=== PATIENT | male | born 1980 | race Caucasian/White ===

== ENCOUNTER 2019-03-20 07:15 | Emergency (ER) | payer OTHER ==
--- NOTE | 2019-03-20 07:46 | PDOC ---
History of Present Illness - General Stated Complaint: SEIZURE Time Seen by Provider: 03/20/19 07:45 - History of Present Illness Initial Comments: Hx limited 2/2 nonverbal Mr. Sheehan is a 39 y/o male with PMH of Down syndrome, developmental delay, generalized convulsive epilepsy, hypotonic diplegia, presenting today with possible seizure like activity and change in alertness. RN called EMS because she noticed seizure like activity and shaking of the extremities and was unaware he had hx of seizure disorder. children's zoo caretaker also noticed that pt was less alert and more drowsy than usual. Per mom, patient has 6-8 seizures per month. They have not increased his meds or given him more after a seizure. Neuro: Dr. Amada Wise, [facility] Past History - Past Medical History Allergies/Adverse Reactions: Allergies Allergy/AdvReac Type Severity Reaction Status Date / Time cefadroxil [From Duricef] Allergy Verified 03/20/19 08:02 cefdinir [From Omnicef] Allergy Verified 03/20/19 08:02 ceftriaxone [From Rocephin] Allergy Verified 03/20/19 08:02 Cephalosporins Allergy Verified 03/20/19 08:02 Penicillins Allergy Verified 03/20/19 08:02 Sulfa (Sulfonamide Allergy Verified 03/20/19 08:02 Antibiotics) Home Medications: Ambulatory Orders levoFLOXacin [Levaquin -] 750 mg PO DAILY #5 tablet MDD 8 03/20/19 Review of Systems - Review of Systems Able to Perform ROS?: No (nonverbal) *Physical Exam - Physical Exam Comments: GENERAL: Asleep, arousable, in no acute distress_ HEAD: No signs of trauma, normocephalic, atraumatic _ EYES: PERRLA, EOMI, sclera anicteric, conjunctiva clear_ ENT: nares patent, oropharynx clear without exudates. Moist mucosa. NECK: Normal ROM, supple, no lymphadenopathy, JVD, or masses_ LUNGS: No distress, speaks in full sentences, clear to auscultation bilaterally _ HEART: Regular rate and rhythm, normal S1 and S2, no murmurs appreciated, peripheral pulses normal and equal bilaterally._ ABDOMEN: G-tube in place. Mild surrounding erythema. Soft, nontender. No guarding, no rebound. No masses. : Suprapubic tube in place. EXTREMITIES: Contracted. NEUROLOGICAL: Unable to assess. SKIN: Warm, Dry, normal turgor, no rashes or lesions noted_ ED Treatment Course - LABORATORY CBC & Chemistry Diagram: 03/20/19 07:50 03/20/19 07:50 - ADDITIONAL ORDERS Additional order review: Laboratory Results 03/20/19 07:21 POC Glucometer 78 03/20/19 07:21 POC Glucometer 78 Medical Decision Making - Medical Decision Making 03/20/19 0745 39M with hx of seizure disorder, Down syndrome, developmental delay, presenting with seizure this morning. DDx includes seizure vs infection. -CBC, CMP -EKG, CXR 03/20/19 08:53 Labs reviewed and wnl. 03/20/19 08:55 EKG shows NSR, 69 bpm, no axis deviation, no ST elevation/depression, QTc 407. 03/20/19 10:00 [address] calls [address] to Dr. Wise, patient's neurologist at [place], as well as [facility] cooler operator. Multiple messages left. 03/20/19 10:41 Pt reassessed. At baseline. Plan to d/c home, f/u PCP. 03/20/19 1130 D/w Dr. Wise's team who states that patient can f/u with PCP as soon as possible to reevaluate seizure meds. 03/20/19 1300 Per discussion with mom and facility health care staff, will obtain UA/UC and start on levaquin 750 mg GT for 1 week. Discharge - Discharge Information Problems reviewed: Yes Clinical Impression/Diagnosis: Seizure-like activity Condition: Stable Disposition: HOME - Admission No - Additional Discharge Information Prescriptions: levoFLOXacin [Levaquin -] 750 mg PO DAILY #5 tablet MDD 8 - Follow up/Referral - Patient Discharge Instructions Patient Printed Discharge Instructions: DI for Seizure Disorder -- Adult Additional Instructions: Please continue taking your seizure medications as prescribed. Please take Levaquin daily for 5 days. Please make a follow up appointment with your neurologist Dr. Wise. If you experience any new, worsening, or concerning symptoms, including changes in alertness, loss of consciousness, fever, prolonged seizure activity, or any other concerns, please return to the emergency department. - Post Discharge Activity
[2019-03-20] MEDS ORDERED: OXcarbazepine 300 MG/5 ML 250 ML BULK BOTTLE PO ONE ×2 (07:51→07:53)
[2019-03-20] MEDS ORDERED: levETIRAcetam 500 MG/5 ML INJECTION VIAL IVPB ONE ×2 (07:53→08:07)
[2019-03-20 08:00] VITALS: BMI 18.8
[2019-03-20 08:12] LABS: BASO % 1.2 % (0-2.0); EOS % 4.2 % (0-4.5); HEMATOCRIT 39.1 % (35.4-49); HEMOGLOBIN 13.4 GM/dL (11.7-16.9); LYMPH % 27.8 % (8-40); MCH 35.4 pg (25.7-33.7); MCHC 34.3 g/dl (32.0-35.9); MEAN CELL VOLUME 103.2 fl (80-96); MEAN PLT VOLUME 8.5 fl (7.5-11.1); MONO % 10.3 % (3.8-10.2); NEUT % 56.5 % (42.8-82.8); PLATELET COUNT 263 K/MM3 (134-434); RBC 3.79 M/mm3 (4.00-5.60); RDW 13.7 % (11.9-15.9)
[2019-03-20 08:40] LABS: ALBUMIN 3.4 g/dl (3.4-5.0); BILIRUBIN,TOTAL 0.3 mg/dL (0.2-1); BLOOD UREA NITROGEN 18.2 mg/dL (7-18); CALCIUM 8.7 mg/dL (8.5-10.1); CREATININE 0.7 mg/dL (0.55-1.3); MAGNESIUM 2.1 mg/dL (1.8-2.4); POTASSIUM 4.9 mmol/L (3.5-5.1); TOT PROT 7.3 g/dl (6.4-8.2)
--- NOTE | 2019-03-20 09:06 | PDOC ---
Attending Attestation - Resident Resident Name: Juliano Doyle - ED Attending Attestation I have performed the following: I have examined & evaluated the patient, The case was reviewed & discussed with the resident, I agree w/resident's findings & plan - HPI HPI: 03/20/19 09:06 Mr. Sheehan is a 39 y/o male with PMH of Down syndrome, developmental delay, generalized convulsive epilepsy, hypotonic diplegia, presenting today with possible seizure like activity and change in alertness at approx 630AM.. Hx limited 2/2 nonverbal RN called EMS because she noticed seizure like activity and shaking of the extremities and was unaware he had hx of seizure disorder. unemployment benefits claims taker also noticed that pt was less alert and more drowsy than usual. Per mom, patient has 6-8 seizures per month. They have not increased his meds or given him more after a seizure. Neuro: Dr. Amada Wise, [facility] - Physicial Exam PE: 03/20/19 09:06 Agree with the resident's HPI and PE as documented in the electronic medical record. NAD, sleeping and snoring, nonverbal, EOMI, PERRL, nl conjunctiva, anicteric; bilateral T.M clear. neck supple. lungs clear, RRR, abdomen soft nontender, PEG tube in place, flushing. Leg bag for suprapubic catheter in place. no skin discoloration or changes or erythema/discharge around sites. no rebound, guarding. Back nontender. CONDON x4, contracted extremities. No peripheral edema. normal color for ethnicity, WWP. 03/20/19 09:52 03/20/19 10:42 - Medical Decision Making 03/20/19 09:07 Vital Signs Temp Pulse Resp BP Pulse Ox 98.7 F 78 14 101/65 100 03/20/19 07:40 03/20/19 07:40 03/20/19 07:40 03/20/19 07:40 03/20/19 07:40 Differential diagnosis includes seizure, infection, left light abnormalities, arrhythmia, pneumonia. Patient may be a chronic colonizer with a suprapubic catheter in place, defer testing at this time given he has no systemic features , fevers or signs and symptoms of urinary tract infection. Per mother at the bedside, recently transferred to [facility][1] and has been compliant with his seizure medications including Keppra and Trileptal which has been maintained for many years. His seizure today was typical of his previous ones, with general tonic-clonic typically lasting 30 seconds. He is currently back to baseline, sleeping. Laboratory results are normal, EKG is sinus rhythm without significant derangements, chest x-ray is also clear, scoliosis is present but no evidence of pneumonia or edema or infiltrate. Will call out to his neurologist Dr. Amada Wise for update on clinical visit and recommendations - left message, no call back at time of discharge, but mother comfortable with plan and followup.. Will discharge back to [facility][1] spoke with the aid at bedside as well as his mother who is agreeable to the impression and plan 03/20/19 09:53 03/20/19 10:42 03/20/19 10:43 Heart Score/ECG Review #1 ECG reviewed & interpreted by me at: 07:50 General ECG Interpretation: Sinus Rhythm, Normal Rate, Normal Intervals Compared to previous ECG there are: Previous ECG unavail
[2019-03-20 11:51] VITALS: BP 142/72; PULSE 65; TEMP 98.2
[2019-03-20] MEDS ORDERED: levoFLOXacin 750 MG TABLET GT SCH (13:26)
--- NOTE | 2019-03-20 14:23 | EKG ---
Test Reason : Blood Pressure : / mmHG Vent. Rate : 069 BPM Atrial Rate : 069 BPM P-R Int : 138 ms QRS Dur : 078 ms QT Int : 380 ms P-R-T Axes : 017 086 057 degrees QTc Int : 407 ms NORMAL SINUS RHYTHM NO PREVIOUS ECGS AVAILABLE Confirmed by BLAYNE DELAROSA MD ([id number]) on 03/20/2019 2:22:34 PM Referred By: Confirmed By:BLAYNE DELAROSA MD
[2019-03-20 14:37] LABS: EPI CELLS 1.3 /HPF (0-5/HPF); HYALINE CASTS 14 /lpf (0-8); PH,URINE 8.5 (5.0-8.0); URINE APPEARANCE CLOUDY; URINE BACTERIA 653.4 /hpf (NEGATIVE); URINE BILIRUBIN NEGATIVE (NEGATIVE); URINE COLOR YELLOW; URINE GLUCOSE (UA) NEGATIVE (NEGATIVE); URINE KETONE NEGATIVE (NEGATIVE); URINE LEUK ESTERASE 3+ (NEGATIVE); URINE NITRITE POSITIVE (NEGATIVE); URINE PROTEIN TRACE (NEGATIVE); URINE RBC 4 /hpf (0-4); URINE UROBILINOGEN 0.2 mg/dL (0.2-1.0); URINE WBC 99 /hpf (0-5)
== END 2019-03-20 15:10 | disposition home or self-care (01) ==
LOC: JER 07:15
DX: G40.401 Other generalized epilepsy and epileptic syndromes, not intractable, with status epilepticus (principal); G83.0 Diplegia of upper limbs; Q90.9 Down syndrome, unspecified; Z88.8 Allergy status to other drugs, medicaments and biological substances; Z88.0 Allergy status to penicillin
CPT/HCPCS: 36415; 71045-TC-FY; 80053; 81003; 82962; 83735; 85025; 87086; 87186; 93005; 93010; 99283-25

== ENCOUNTER 2020-05-29 09:48 | Emergency (ER) | payer OTHER ==
[2020-05-29 10:07] VITALS: BP 123/75; PULSE 97; TEMP 97.5; BMI 21.4
== END 2020-05-29 11:22 | disposition home or self-care (01) ==
LOC: JERFT 09:48
DX: S90.812A Abrasion, left foot, initial encounter (principal)
CPT/HCPCS: 73630-TC-LT; 99284-25

== ENCOUNTER 2023-01-15 02:29 | Inpatient (IN) | payer OTHER ==
[2023-01-15] MEDS ORDERED: ACETAMINOPHEN 1000 MG/100 ML BAG IVPB ONE (02:52)
[2023-01-15] MEDS ORDERED: VANCOMYCIN 1,000 MG in DEXTROSE 5%-WATER - 250 ML IVPB ONE (02:54)
[2023-01-15] MEDS ORDERED: MEROPENEM 1 GM in DEXTROSE 5%-WATER 100 ML IVPB ONE (02:56)
[2023-01-15 02:59] VITALS: BMI 16.5
[2023-01-15] MEDS ORDERED: MEROPENEM 1 GM VIAL (RESTRICTED TO ID) IVPB ONE ×2 (03:21→09:03)
[2023-01-15] MEDS ORDERED: ACETAMINOPHEN INJECTION 100 ML IVPB ONE ×2 (03:21→09:04)
[2023-01-15 03:35] LABS: BASO % 1.5 % (0-2.0); EOS % 0.1 % (0-4.5); HEMATOCRIT 41.3 % (35.4-49); LYMPH % 20.2 % (8-40); MCH 34.4 pg (25.7-33.7); MCHC 33.8 g/dl (32.0-35.9); MEAN CELL VOLUME 101.8 fl (80-96); MEAN PLT VOLUME 7.9 fl (7.5-11.1); NEUT % 68.2 % (42.8-82.8); PLATELET COUNT 320 10^3/uL (134-434); RBC 4.06 M/mm3 (4.00-5.60); RDW 13.5 % (11.9-15.9); WHITE BLOOD COUNT 7.2 K/mm3 (4.0-10.0)
[2023-01-15 03:37] LABS: POTASSIUM 4.1 mmol/L (3.5-5.1)
[2023-01-15 03:39] LABS: CALCIUM 9.7 mg/dL (8.5-10.1)
[2023-01-15 03:40] LABS: ALBUMIN 3.9 g/dl (3.4-5.0); BLOOD UREA NITROGEN 19.7 mg/dL (7-18)
[2023-01-15 03:44] LABS: BILIRUBIN,TOTAL 0.2 mg/dL (0.2-1); TOT PROT 8.1 g/dl (6.4-8.2)
[2023-01-15 04:11] LABS: LACTIC ACID 2.1 mmol/L (0.4-2.0)
[2023-01-15] MEDS ORDERED: VANCOMYCIN 1 GRAM (PRE-DOCKED) 1,000 MG/250 ML BAG IVPB ONE (04:11)
[2023-01-15] MEDS ORDERED: SODIUM CHLORIDE 0.9% 1000 ML INFUS.BAG IV ONE (04:47)
[2023-01-15 06:35] LABS: EPI CELLS 10 /uL (0-25.1); HYALINE CASTS 54 /uL (0-3.1); URINE APPEARANCE TURBID; URINE BACTERIA >9,000 /uL (0-1359); URINE BILIRUBIN NEGATIVE (NEGATIVE); URINE COLOR YELLOW; URINE GLUCOSE (UA) NEGATIVE (NEGATIVE); URINE KETONE NEGATIVE (NEGATIVE); URINE LEUK ESTERASE 2+ (NEGATIVE); URINE NITRITE POSITIVE (NEGATIVE); URINE PROTEIN 2+ (NEGATIVE); URINE RBC 16 /uL (0-23.9); URINE UROBILINOGEN 0.2 mg/dL (0.2-1.0); URINE WBC 372 /uL (0-25.8)
[2023-01-15 08:49] LABS: YEAST NEGATIVE (NEGATIVE)
[2023-01-15] MEDS: SODIUM CHLORIDE 0.45% 1,000 ML IV SCH (08:57)
[2023-01-15] MEDS ORDERED: MEROPENEM 1 GM in DEXTROSE 5%-WATER 100 ML IVPB SCH ×2 (09:00→11:00)
[2023-01-15] MEDS ORDERED: VANCOMYCIN 750 MG in DEXTROSE 5%-WATER - 150 ML IVPB SCH (09:00)
[2023-01-15] MEDS ORDERED: ENOXAPARIN NA (PORCINE) 40 MG/0.4 ML DISP.SYRIN SQ ONE (09:04)
[2023-01-15] MEDS: ENOXAPARIN NA (PORCINE) 40 MG/0.4 ML DISP.SYRIN SQ SCH (09:10)
[2023-01-15] MEDS ORDERED: lamoTRIgine 100 MG TABLET ONE (09:55)
[2023-01-15] MEDS ORDERED: lamoTRIgine 100 MG TABLET GT SCH (10:00)
[2023-01-15] MEDS ORDERED: VANCOMYCIN/WATER FOR INJ (PEG) 750 MG/150 ML BAG IVPB SCH ×2 (10:00→20:00)
[2023-01-15] MEDS: lamoTRIgine 100 MG TABLET GT SCH ×2 (17:07→22:42)
[2023-01-15] MEDS: levETIRAcetam 500 MG/5 ML ORAL SOLUTION (UNIT-DOSE CUPS) GT SCH ×2 (17:26→22:42)
[2023-01-15] MEDS: MEROPENEM 1 GM in DEXTROSE 5%-WATER 100 ML IVPB SCH (18:21)
[2023-01-15] MEDS: PATIENT'S OWN MEDICATION (NON-FORMULARY) (Tizanidine Hcl [Tizanidine Hcl] 4 MG Tablet) GT SCH (18:26)
[2023-01-15] MEDS: BACLOFEN 10 MG TABLET (FP) GT SCH ×2 (19:55→23:31)
[2023-01-15] MEDS: OXcarbazepine 300 MG TABLET (UD) PO SCH ×2 (19:55→22:43)
[2023-01-15] MEDS: ACETAMINOPHEN 1000 MG/100 ML BAG IVPB PRN (23:02)
[2023-01-16] MEDS: MEROPENEM 1 GM in DEXTROSE 5%-WATER 100 ML IVPB SCH ×3 (00:59→17:34)
[2023-01-16] MEDS: levETIRAcetam 500 MG/5 ML ORAL SOLUTION (UNIT-DOSE CUPS) GT SCH ×3 (06:29→22:53)
[2023-01-16] MEDS: OXcarbazepine 300 MG TABLET (UD) PO SCH (06:30)
[2023-01-16] MEDS: BACLOFEN 10 MG TABLET (FP) GT SCH ×3 (06:32→22:55)
[2023-01-16] MEDS: PATIENT'S OWN MEDICATION (NON-FORMULARY) (Tizanidine Hcl [Tizanidine Hcl] 4 MG Tablet) GT SCH ×3 (06:34→17:34)
[2023-01-16] MEDS: ACETAMINOPHEN 1000 MG/100 ML BAG IVPB PRN (07:58)
[2023-01-16 08:30] LABS: BASO % 1.2 % (0-2.0); HEMATOCRIT 43.8 % (35.4-49); HEMOGLOBIN 14.3 GM/dL (11.7-16.9); LYMPH % 13.7 % (8-40); MCH 33.9 pg (25.7-33.7); MCHC 32.7 g/dl (32.0-35.9); MEAN CELL VOLUME 103.5 fl (80-96); MEAN PLT VOLUME 8.8 fl (7.5-11.1); MONO % 6.4 % (3.8-10.2); NEUT % 78.7 % (42.8-82.8); PLATELET COUNT 267 10^3/uL (134-434); RBC 4.23 M/mm3 (4.00-5.60); RDW 13.8 % (11.9-15.9); WHITE BLOOD COUNT 11.5 K/mm3 (4.0-10.0)
[2023-01-16 08:48] LABS: POTASSIUM 3.4 mmol/L (3.5-5.1)
[2023-01-16 08:56] LABS: ALBUMIN 3.6 g/dl (3.4-5.0); BLOOD UREA NITROGEN 16.3 mg/dL (7-18); MAGNESIUM 2.1 mg/dL (1.8-2.4)
[2023-01-16 08:59] LABS: CREATININE 0.9 mg/dL (0.55-1.3); PHOSPHOROUS 1.7 mg/dL (2.5-4.9)
[2023-01-16 09:01] LABS: BILIRUBIN,TOTAL 0.4 mg/dL (0.2-1); TOT PROT 8.1 g/dl (6.4-8.2)
[2023-01-16] MEDS ORDERED: POTASSIUM CHLORIDE ORAL LIQUID 20 MEQ/15 ML GT ONE (10:18)
[2023-01-16] MEDS: SODIUM CHLORIDE 0.45% 1,000 ML IV SCH (10:20)
[2023-01-16] MEDS: ENOXAPARIN NA (PORCINE) 40 MG/0.4 ML DISP.SYRIN SQ SCH (10:23)
[2023-01-16] MEDS: lamoTRIgine 100 MG TABLET GT SCH ×2 (10:24→22:52)
[2023-01-16] MEDS: NAPH,MB-DB/K PH,MBDB POWDER PACKET GT SCH ×2 (10:24→22:52)
[2023-01-16] MEDS: VANCOMYCIN/WATER FOR INJ (PEG) 1,000 MG/200 ML BAG IVPB SCH (12:53)
[2023-01-16] MEDS: OXcarbazepine 300 MG/5 ML UNIT DOSE CUPS PO SCH ×2 (13:01→22:53)
[2023-01-16] MEDS ORDERED: SODIUM CHLORIDE 0.45% 1,000 ML IV SCH (17:45)
[2023-01-17] MEDS: MEROPENEM 1 GM in DEXTROSE 5%-WATER 100 ML IVPB SCH ×3 (02:59→17:51)
[2023-01-17] MEDS: OXcarbazepine 300 MG/5 ML UNIT DOSE CUPS PO SCH ×3 (06:10→22:48)
[2023-01-17] MEDS: BACLOFEN 10 MG TABLET (FP) GT SCH ×3 (06:10→22:03)
[2023-01-17] MEDS: PATIENT'S OWN MEDICATION (NON-FORMULARY) (Tizanidine Hcl [Tizanidine Hcl] 4 MG Tablet) GT SCH ×3 (06:10→17:54)
[2023-01-17 07:21] LABS: BASO % 1.1 % (0-2.0); EOS % 0.2 % (0-4.5); HEMATOCRIT 42.4 % (35.4-49); HEMOGLOBIN 13.9 GM/dL (11.7-16.9); LYMPH % 15.9 % (8-40); MCH 34.3 pg (25.7-33.7); MCHC 32.8 g/dl (32.0-35.9); MEAN CELL VOLUME 104.5 fl (80-96); MEAN PLT VOLUME 8.8 fl (7.5-11.1); MONO % 8.5 % (3.8-10.2); NEUT % 74.3 % (42.8-82.8); PLATELET COUNT 254 10^3/uL (134-434); RBC 4.06 M/mm3 (4.00-5.60); RDW 13.6 % (11.9-15.9)
[2023-01-17 07:33] LABS: ALBUMIN 3.3 g/dl (3.4-5.0); MAGNESIUM 2.2 mg/dL (1.8-2.4)
[2023-01-17 07:36] LABS: CREATININE 0.8 mg/dL (0.55-1.3)
[2023-01-17 07:38] LABS: BILIRUBIN,TOTAL 0.6 mg/dL (0.2-1); TOT PROT 7.4 g/dl (6.4-8.2)
[2023-01-17] MEDS: levETIRAcetam 500 MG/5 ML ORAL SOLUTION (UNIT-DOSE CUPS) GT SCH ×3 (08:00→22:03)
[2023-01-17] MEDS: lamoTRIgine 100 MG TABLET GT SCH ×2 (10:55→22:03)
[2023-01-17] MEDS: NAPH,MB-DB/K PH,MBDB POWDER PACKET GT SCH ×2 (10:55→22:04)
[2023-01-17] MEDS: ENOXAPARIN NA (PORCINE) 40 MG/0.4 ML DISP.SYRIN SQ SCH (10:56)
[2023-01-17] MEDS: VANCOMYCIN/WATER FOR INJ (PEG) 1,000 MG/200 ML BAG IVPB SCH (12:36)
[2023-01-18] MEDS: MEROPENEM 1 GM in DEXTROSE 5%-WATER 100 ML IVPB SCH ×3 (01:19→17:27)
[2023-01-18] MEDS: OXcarbazepine 300 MG/5 ML UNIT DOSE CUPS PO SCH ×3 (05:18→22:23)
[2023-01-18] MEDS: BACLOFEN 10 MG TABLET (FP) GT SCH ×3 (05:19→22:23)
[2023-01-18] MEDS: PATIENT'S OWN MEDICATION (NON-FORMULARY) (Tizanidine Hcl [Tizanidine Hcl] 4 MG Tablet) GT SCH ×3 (05:19→17:28)
[2023-01-18] MEDS: levETIRAcetam 500 MG/5 ML ORAL SOLUTION (UNIT-DOSE CUPS) GT SCH ×3 (05:23→22:22)
[2023-01-18 07:43] LABS: BASO % 1.5 % (0-2.0); EOS % 1.6 % (0-4.5); HEMATOCRIT 40.6 % (35.4-49); HEMOGLOBIN 13.4 GM/dL (11.7-16.9); MCH 34.4 pg (25.7-33.7); MEAN CELL VOLUME 104.2 fl (80-96); MEAN PLT VOLUME 9.3 fl (7.5-11.1); MONO % 7.7 % (3.8-10.2); NEUT % 77.2 % (42.8-82.8); PLATELET COUNT 225 10^3/uL (134-434); RDW 13.4 % (11.9-15.9); WHITE BLOOD COUNT 7.8 K/mm3 (4.0-10.0)
[2023-01-18 07:53] LABS: POTASSIUM 4.4 mmol/L (3.5-5.1)
[2023-01-18 08:14] LABS: BLOOD UREA NITROGEN 15.4 mg/dL (7-18); CALCIUM 8.3 mg/dL (8.5-10.1)
[2023-01-18 08:17] LABS: CREATININE 0.7 mg/dL (0.55-1.3); MAGNESIUM 2.3 mg/dL (1.8-2.4)
[2023-01-18 08:19] LABS: BILIRUBIN,TOTAL 0.3 mg/dL (0.2-1)
[2023-01-18 08:21] LABS: TOT PROT 6.7 g/dl (6.4-8.2)
[2023-01-18] MEDS: ENOXAPARIN NA (PORCINE) 40 MG/0.4 ML DISP.SYRIN SQ SCH (10:46)
[2023-01-18] MEDS: NAPH,MB-DB/K PH,MBDB POWDER PACKET GT SCH ×2 (10:46→22:24)
[2023-01-18] MEDS: lamoTRIgine 100 MG TABLET GT SCH ×2 (10:46→22:25)
[2023-01-18] MEDS: VANCOMYCIN/WATER FOR INJ (PEG) 1,000 MG/200 ML BAG IVPB SCH (12:18)
[2023-01-19] MEDS: MEROPENEM 1 GM in DEXTROSE 5%-WATER 100 ML IVPB SCH ×3 (02:19→18:22)
[2023-01-19] MEDS: BACLOFEN 10 MG TABLET (FP) GT SCH ×3 (06:30→23:27)
[2023-01-19] MEDS: levETIRAcetam 500 MG/5 ML ORAL SOLUTION (UNIT-DOSE CUPS) GT SCH ×3 (06:30→23:28)
[2023-01-19] MEDS: PATIENT'S OWN MEDICATION (NON-FORMULARY) (Tizanidine Hcl [Tizanidine Hcl] 4 MG Tablet) GT SCH ×3 (06:30→18:22)
[2023-01-19] MEDS: OXcarbazepine 300 MG/5 ML UNIT DOSE CUPS PO SCH ×3 (06:30→23:28)
[2023-01-19 08:05] LABS: POTASSIUM 4.2 mmol/L (3.5-5.1)
[2023-01-19 08:07] LABS: CALCIUM 8.1 mg/dL (8.5-10.1)
[2023-01-19 08:08] LABS: BLOOD UREA NITROGEN 11.1 mg/dL (7-18); HEMATOCRIT 38.8 % (35.4-49); MAGNESIUM 2.3 mg/dL (1.8-2.4); MCH 34.7 pg (25.7-33.7); MCHC 33.5 g/dl (32.0-35.9); MEAN CELL VOLUME 103.6 fl (80-96); MEAN PLT VOLUME 9.1 fl (7.5-11.1); PLATELET COUNT 235 10^3/uL (134-434); RBC 3.75 M/mm3 (4.00-5.60); RDW 12.9 % (11.9-15.9); WHITE BLOOD COUNT 5.1 K/mm3 (4.0-10.0)
[2023-01-19 08:11] LABS: CREATININE 0.6 mg/dL (0.55-1.3)
[2023-01-19 08:12] LABS: BILIRUBIN,TOTAL 0.3 mg/dL (0.2-1); TOT PROT 6.7 g/dl (6.4-8.2)
[2023-01-19] MEDS: lamoTRIgine 100 MG TABLET GT SCH ×2 (10:44→23:28)
[2023-01-19] MEDS: ENOXAPARIN NA (PORCINE) 40 MG/0.4 ML DISP.SYRIN SQ SCH (10:45)
[2023-01-19] MEDS: NAPH,MB-DB/K PH,MBDB POWDER PACKET GT SCH ×2 (10:45→23:28)
[2023-01-19 11:11] LABS: ANISOCYTOSIS 1+; MACROCYTOSIS 1+
[2023-01-20] MEDS: MEROPENEM 1 GM in DEXTROSE 5%-WATER 100 ML IVPB SCH ×2 (02:52→09:45)
[2023-01-20] MEDS: OXcarbazepine 300 MG/5 ML UNIT DOSE CUPS PO SCH ×3 (05:21→22:17)
[2023-01-20] MEDS: BACLOFEN 10 MG TABLET (FP) GT SCH ×3 (05:21→22:16)
[2023-01-20] MEDS: PATIENT'S OWN MEDICATION (NON-FORMULARY) (Tizanidine Hcl [Tizanidine Hcl] 4 MG Tablet) GT SCH ×3 (05:21→17:43)
[2023-01-20] MEDS: levETIRAcetam 500 MG/5 ML ORAL SOLUTION (UNIT-DOSE CUPS) GT SCH ×3 (05:21→22:17)
[2023-01-20 07:51] LABS: BASO % 1.2 % (0-2.0); LYMPH % 30.8 % (8-40); MCH 34.3 pg (25.7-33.7); MCHC 33.5 g/dl (32.0-35.9); MEAN CELL VOLUME 102.5 fl (80-96); MEAN PLT VOLUME 8.9 fl (7.5-11.1); MONO % 14.5 % (3.8-10.2); NEUT % 49.5 % (42.8-82.8); PLATELET COUNT 244 10^3/uL (134-434); RDW 13.1 % (11.9-15.9)
[2023-01-20 08:11] LABS: POTASSIUM 4.6 mmol/L (3.5-5.1)
[2023-01-20 08:12] LABS: CALCIUM 8.6 mg/dL (8.5-10.1)
[2023-01-20 08:13] LABS: ALBUMIN 2.9 g/dl (3.4-5.0); BLOOD UREA NITROGEN 13.6 mg/dL (7-18); MAGNESIUM 2.3 mg/dL (1.8-2.4)
[2023-01-20 08:16] LABS: CREATININE 0.6 mg/dL (0.55-1.3)
[2023-01-20 08:18] LABS: BILIRUBIN,TOTAL 0.3 mg/dL (0.2-1); TOT PROT 6.9 g/dl (6.4-8.2)
[2023-01-20] MEDS: lamoTRIgine 100 MG TABLET GT SCH ×2 (09:45→22:14)
[2023-01-20] MEDS: NAPH,MB-DB/K PH,MBDB POWDER PACKET GT SCH ×2 (09:45→22:17)
[2023-01-20] MEDS: ENOXAPARIN NA (PORCINE) 40 MG/0.4 ML DISP.SYRIN SQ SCH (09:45)
[2023-01-20] MEDS: MINERAL OIL/PET HY-PHL TOPICAL OINTMENT 454 GM JAR TP SCH (12:25)
[2023-01-21] MEDS: PATIENT'S OWN MEDICATION (NON-FORMULARY) (Tizanidine Hcl [Tizanidine Hcl] 4 MG Tablet) GT SCH ×2 (05:41→11:07)
[2023-01-21] MEDS: levETIRAcetam 500 MG/5 ML ORAL SOLUTION (UNIT-DOSE CUPS) GT SCH ×2 (05:42→13:04)
[2023-01-21] MEDS: BACLOFEN 10 MG TABLET (FP) GT SCH ×2 (05:43→13:04)
[2023-01-21] MEDS: OXcarbazepine 300 MG/5 ML UNIT DOSE CUPS PO SCH ×2 (05:44→13:04)
[2023-01-21 08:47] VITALS: RESP 20
[2023-01-21] MEDS: NAPH,MB-DB/K PH,MBDB POWDER PACKET GT SCH (11:05)
[2023-01-21] MEDS: lamoTRIgine 100 MG TABLET GT SCH (11:05)
[2023-01-21] MEDS: MINERAL OIL/PET HY-PHL TOPICAL OINTMENT 454 GM JAR TP SCH (11:05)
[2023-01-21] MEDS: ENOXAPARIN NA (PORCINE) 40 MG/0.4 ML DISP.SYRIN SQ SCH (11:05)
[2023-01-21 16:33] VITALS: BP 110/59; PULSE 98; TEMP 97.3
== END 2023-01-21 16:35 | disposition home or self-care (01) | DRG 872 ==
LOC: JER 02:29 → JERBED 03:06 → J7W 12:27
PROVIDERS: ADMIT Internal Medicine; ATTEND Nurse Practitioner Family
DX: A41.9 Sepsis, unspecified organism (principal); E87.0 Hyperosmolality and hypernatremia; E87.20 Acidosis, unspecified; N39.0 Urinary tract infection, site not specified; N31.9 Neuromuscular dysfunction of bladder, unspecified; G40.409 Other generalized epilepsy and epileptic syndromes, not intractable, without status epilepticus; R62.59 Other lack of expected normal physiological development in childhood; E03.9 Hypothyroidism, unspecified; K21.9 Gastro-esophageal reflux disease without esophagitis; E86.0 Dehydration; Q90.9 Down syndrome, unspecified
CPT/HCPCS: 0241U-QW; 36415; 71045-TC-FY; 80053; 81003; 83605; 83735; 83935; 84100; 84443; 84484; 85025; 86850; 86900; 86901; 87040; 87086; 87186; 87635; 99285-25; J0475

== ENCOUNTER 2023-03-21 12:49 | Inpatient (IN) | payer OTHER ==
[2023-03-21 15:03] LABS: VENOUS BASE EXCESS 4.4 mmol/L (-2-2); VENOUS O2 SATURATION 95.7 % (70-80); VENOUS PCO2 47.9 mmHg (38-52); VENOUS PH 7.413 (7.310-7.410)
[2023-03-21 15:05] LABS: BASO % 0.6 % (0-2.0); HEMATOCRIT 38.6 % (35.4-49); HEMOGLOBIN 12.6 GM/dL (11.7-16.9); LYMPH % 11.8 % (8-40); MCHC 32.8 g/dl (32.0-35.9); MEAN CELL VOLUME 103.7 fl (80-96); MEAN PLT VOLUME 7.6 fl (7.5-11.1); MONO % 5.7 % (3.8-10.2); NEUT % 81.9 % (42.8-82.8); PLATELET COUNT 362 10^3/uL (134-434); RBC 3.72 M/mm3 (4.00-5.60); RDW 14.3 % (11.9-15.9); WHITE BLOOD COUNT 11.3 K/mm3 (4.0-10.0)
[2023-03-21 15:37] LABS: POTASSIUM 3.7 mmol/L (3.5-5.1)
[2023-03-21 15:38] LABS: CALCIUM 10.3 mg/dL (8.5-10.1)
[2023-03-21 15:39] LABS: ALBUMIN 3.9 g/dl (3.4-5.0); BLOOD UREA NITROGEN 19.4 mg/dL (7-18)
[2023-03-21 15:43] LABS: BILIRUBIN,TOTAL 0.2 mg/dL (0.2-1); TOT PROT 7.8 g/dl (6.4-8.2)
[2023-03-21] MEDS ORDERED: ACETAMINOPHEN 1000 MG/100 ML BAG IVPB ONE (16:14)
[2023-03-21] MEDS ORDERED: SODIUM CHLORIDE 0.9% 1000 ML INFUS.BAG IV ONE (16:14)
[2023-03-21 16:33] LABS: EPI CELLS 6 /uL (0-25.1); HYALINE CASTS 1 /uL (0-3.1); PH,URINE 6.5 (5.0-8.0); URINE APPEARANCE CLOUDY; URINE BACTERIA 3065 /uL (0-1359); URINE BILIRUBIN NEGATIVE (NEGATIVE); URINE COLOR YELLOW; URINE GLUCOSE (UA) NEGATIVE (NEGATIVE); URINE KETONE NEGATIVE (NEGATIVE); URINE LEUK ESTERASE 3+ (NEGATIVE); URINE NITRITE NEGATIVE (NEGATIVE); URINE PROTEIN 2+ (NEGATIVE); URINE RBC 42 /uL (0-23.9); URINE UROBILINOGEN 0.2 mg/dL (0.2-1.0); URINE WBC 1013 /uL (0-25.8)
[2023-03-21] MEDS ORDERED: MEROPENEM 1 GM in DEXTROSE 5%-WATER 100 ML IVPB ONE (16:46)
[2023-03-21] MEDS ORDERED: VANCOMYCIN 1,000 MG in DEXTROSE 5%-WATER - 250 ML IVPB ONE (16:46)
[2023-03-21] MEDS ORDERED: MEROPENEM 1 GM VIAL (RESTRICTED TO ID) IVPB ONE (16:59)
[2023-03-21] MEDS ORDERED: ACETAMINOPHEN INJECTION 100 ML IVPB ONE (17:19)
[2023-03-21] MEDS ORDERED: VANCOMYCIN 1 GRAM (PRE-DOCKED) 1,000 MG/250 ML BAG IVPB ONE (17:20)
[2023-03-21] MEDS: SODIUM CHLORIDE 1,000 ML IV SCH (18:07)
[2023-03-21] MEDS ORDERED: ALBUTEROL SO4 0.083% IH SOL 2.5 MG/3 ML VIAL.NEB. NEB PRN (18:28)
[2023-03-21] MEDS ORDERED: diazePAM RECTAL GEL 5 MG KIT (PRE-CALIBRATED) RC PRN (18:28)
[2023-03-21] MEDS ORDERED: PATIENT'S OWN MEDICATION (NON-FORMULARY) (Diazepam [Valtoco] 10 MG/0.1 ML Spray) NS PRN (18:28)
[2023-03-21] MEDS ORDERED: BACLOFEN 10 MG TABLET (FP) ONE (21:14)
[2023-03-21] MEDS ORDERED: lamoTRIgine 100 MG TABLET ONE (21:14)
[2023-03-21] MEDS ORDERED: PATIENT'S OWN MEDICATION (NON-FORMULARY) (Tizanidine Hcl [Tizanidine Hcl] 4 MG Tablet) GT SCH (22:00)
[2023-03-21] MEDS ORDERED: SENNOSIDES 8.6MG TABLET (FP) PO SCH (22:00)
[2023-03-21] MEDS: LACTOBACILLUS ACIDOPHILUS 1 TABLET GT SCH (22:10)
[2023-03-21] MEDS: lamoTRIgine 100 MG TABLET GT SCH (22:10)
[2023-03-21] MEDS: SODIUM CHLORIDE 1 GM TABLET GT SCH (22:10)
[2023-03-21] MEDS: BACLOFEN 10 MG TABLET (FP) GT SCH (22:10)
[2023-03-21] MEDS: levETIRAcetam 500 MG/5 ML ORAL SOLUTION (UNIT-DOSE CUPS) GT SCH (22:10)
[2023-03-21] MEDS: SENNOSIDES 8.8 MG/5 ML BULK BOTTLE GT SCH (22:10)
[2023-03-21] MEDS: OXcarbazepine 300 MG/5 ML 250 ML BULK BOTTLE GT SCH (22:10)
[2023-03-22] MEDS ORDERED: MEROPENEM 1 GM VIAL (RESTRICTED TO ID) IVPB ONE ×3 (01:06→19:43)
[2023-03-22] MEDS: ACETAMINOPHEN 1000 MG/100 ML BAG IVPB PRN ×2 (02:08→21:38)
[2023-03-22] MEDS: MEROPENEM 1 GM in DEXTROSE 5%-WATER 100 ML IVPB SCH ×3 (02:08→19:55)
[2023-03-22] MEDS ORDERED: VANCOMYCIN/WATER FOR INJ (PEG) 1,000 MG/200 ML BAG IVPB SCH (06:00)
[2023-03-22] MEDS ORDERED: VANCOMYCIN 1,000 MG in DEXTROSE 5%-WATER - 250 ML IVPB SCH (06:00)
[2023-03-22] MEDS ORDERED: VANCOMYCIN 1 GRAM (PRE-DOCKED) 1,000 MG/250 ML BAG IVPB ONE (06:33)
[2023-03-22] MEDS: OXcarbazepine 300 MG/5 ML 250 ML BULK BOTTLE GT SCH ×2 (06:50→23:16)
[2023-03-22] MEDS: lamoTRIgine 100 MG TABLET GT SCH ×2 (06:50→23:04)
[2023-03-22] MEDS: BACLOFEN 10 MG TABLET (FP) GT SCH ×3 (06:50→23:06)
[2023-03-22 09:04] LABS: HEMATOCRIT 37.1 % (35.4-49); HEMOGLOBIN 12.9 GM/dL (11.7-16.9); MCH 35.6 pg (25.7-33.7); MCHC 34.9 g/dl (32.0-35.9); MEAN PLT VOLUME 7.9 fl (7.5-11.1); PLATELET COUNT 340 10^3/uL (134-434); RBC 3.64 M/mm3 (4.00-5.60); RDW 14.3 % (11.9-15.9); WHITE BLOOD COUNT 8.6 K/mm3 (4.0-10.0)
[2023-03-22 09:36] LABS: POTASSIUM 3.6 mmol/L (3.5-5.1)
[2023-03-22 09:41] LABS: CALCIUM 9.3 mg/dL (8.5-10.1)
[2023-03-22 09:42] LABS: ALBUMIN 3.7 g/dl (3.4-5.0); BLOOD UREA NITROGEN 15.7 mg/dL (7-18)
[2023-03-22 09:43] LABS: MAGNESIUM 1.9 mg/dL (1.8-2.4)
[2023-03-22 09:44] LABS: PHOSPHOROUS 3.1 mg/dL (2.5-4.9)
[2023-03-22 09:46] LABS: BILIRUBIN,TOTAL 0.4 mg/dL (0.2-1); TOT PROT 7.5 g/dl (6.4-8.2)
[2023-03-22] MEDS: POLYETHYLENE GLYCOL (HEALTHYLAX) 3350 17 GM PACKET GT SCH (11:50)
[2023-03-22] MEDS: LACTOBACILLUS ACIDOPHILUS 1 TABLET GT SCH (11:50)
[2023-03-22] MEDS: levETIRAcetam 500 MG/5 ML ORAL SOLUTION (UNIT-DOSE CUPS) GT SCH ×2 (11:50→23:03)
[2023-03-22] MEDS: ENOXAPARIN NA (PORCINE) 40 MG/0.4 ML DISP.SYRIN SQ SCH (11:50)
[2023-03-22] MEDS: SODIUM CHLORIDE 1 GM TABLET GT SCH ×2 (11:51→23:12)
[2023-03-22] MEDS: CHOLECALCIFEROL (VIT D3) 1,000 UNIT (25 MCG) TABLET GT SCH (11:51)
[2023-03-22] MEDS: SODIUM CHLORIDE 1,000 ML IV SCH (19:55)
[2023-03-22] MEDS: SENNOSIDES 8.8 MG/5 ML BULK BOTTLE GT SCH (23:10)
[2023-03-23] MEDS ORDERED: ACETAMINOPHEN 1000 MG/100 ML BAG IVPB ONE ×2 (00:19→05:04)
[2023-03-23] MEDS: MEROPENEM 1 GM in DEXTROSE 5%-WATER 100 ML IVPB SCH ×3 (05:02→17:26)
[2023-03-23] MEDS: lamoTRIgine 100 MG TABLET GT SCH ×2 (06:40→23:19)
[2023-03-23] MEDS: BACLOFEN 10 MG TABLET (FP) GT SCH ×3 (06:42→23:21)
[2023-03-23] MEDS: OXcarbazepine 300 MG/5 ML 250 ML BULK BOTTLE GT SCH ×2 (06:45→23:27)
[2023-03-23] MEDS ORDERED: INSULIN (NOVOLOG) ASPART 100 UNITS/ML 10ML VIAL ONE (07:36)
[2023-03-23 08:41] LABS: BASO % 1.3 % (0-2.0); HEMATOCRIT 37.5 % (35.4-49); HEMOGLOBIN 13.1 GM/dL (11.7-16.9); LYMPH % 21.9 % (8-40); MCH 35.5 pg (25.7-33.7); MCHC 34.8 g/dl (32.0-35.9); MEAN PLT VOLUME 7.9 fl (7.5-11.1); MONO % 7.2 % (3.8-10.2); NEUT % 69.6 % (42.8-82.8); PLATELET COUNT 281 10^3/uL (134-434); RBC 3.68 M/mm3 (4.00-5.60); RDW 13.8 % (11.9-15.9); WHITE BLOOD COUNT 6.7 K/mm3 (4.0-10.0)
[2023-03-23 09:02] LABS: ALBUMIN 3.5 g/dl (3.4-5.0); BLOOD UREA NITROGEN 12.4 mg/dL (7-18); CALCIUM 8.9 mg/dL (8.5-10.1)
[2023-03-23 09:05] LABS: CREATININE 0.8 mg/dL (0.55-1.3)
[2023-03-23 09:06] LABS: BILIRUBIN,TOTAL 0.4 mg/dL (0.2-1); TOT PROT 7.1 g/dl (6.4-8.2)
[2023-03-23] MEDS: SODIUM CHLORIDE 1 GM TABLET GT SCH ×2 (09:17→23:16)
[2023-03-23] MEDS: CHOLECALCIFEROL (VIT D3) 1,000 UNIT (25 MCG) TABLET GT SCH (09:18)
[2023-03-23] MEDS: POLYETHYLENE GLYCOL (HEALTHYLAX) 3350 17 GM PACKET GT SCH (09:18)
[2023-03-23] MEDS: ENOXAPARIN NA (PORCINE) 40 MG/0.4 ML DISP.SYRIN SQ SCH (09:18)
[2023-03-23] MEDS: levETIRAcetam 500 MG/5 ML ORAL SOLUTION (UNIT-DOSE CUPS) GT SCH ×2 (09:18→23:23)
[2023-03-23] MEDS: LACTOBACILLUS ACIDOPHILUS 1 TABLET GT SCH (09:18)
[2023-03-23] MEDS: POTASSIUM CHLORIDE ORAL LIQUID 20 MEQ/15 ML GT SCH ×2 (11:21→23:26)
[2023-03-23] MEDS ORDERED: LACTOBACILLUS ACIDOPHILUS 1 TABLET GT SCH (13:00)
[2023-03-23] MEDS ORDERED: ACETAMINOPHEN 650 MG/20.3 ML ORAL SOLUTION (CUPS) GT PRN ×2 (15:00→18:04)
[2023-03-23] MEDS: SODIUM CHLORIDE 0.45% 1,000 ML IV SCH (17:26)
[2023-03-23] MEDS ORDERED: ACETAMINOPHEN 1000 MG/100 ML BAG IVPB PRN (18:03)
[2023-03-23] MEDS: ACETAMINOPHEN 1000 MG/100 ML BAG IVPB PRN (19:06)
[2023-03-23] MEDS: SENNOSIDES 8.8 MG/5 ML BULK BOTTLE GT SCH (23:27)
[2023-03-24] MEDS: MEROPENEM 1 GM in DEXTROSE 5%-WATER 100 ML IVPB SCH ×3 (01:12→17:15)
[2023-03-24] MEDS: ACETAMINOPHEN 1000 MG/100 ML BAG IVPB PRN (01:40)
[2023-03-24] MEDS: BACLOFEN 10 MG TABLET (FP) GT SCH ×3 (06:51→21:54)
[2023-03-24] MEDS: lamoTRIgine 100 MG TABLET GT SCH ×2 (06:52→21:52)
[2023-03-24] MEDS: OXcarbazepine 300 MG/5 ML 250 ML BULK BOTTLE GT SCH ×2 (06:54→22:33)
[2023-03-24 08:22] LABS: BASO % 0.7 % (0-2.0); EOS % 0.1 % (0-4.5); HEMATOCRIT 40.5 % (35.4-49); HEMOGLOBIN 13.5 GM/dL (11.7-16.9); LYMPH % 28.1 % (8-40); MCH 35.2 pg (25.7-33.7); MCHC 33.2 g/dl (32.0-35.9); MONO % 11.4 % (3.8-10.2); NEUT % 59.7 % (42.8-82.8); PLATELET COUNT 281 10^3/uL (134-434); RBC 3.82 M/mm3 (4.00-5.60); RDW 14.2 % (11.9-15.9); WHITE BLOOD COUNT 7.5 K/mm3 (4.0-10.0)
[2023-03-24 08:37] LABS: POTASSIUM 3.5 mmol/L (3.5-5.1)
[2023-03-24 08:46] LABS: CALCIUM 8.6 mg/dL (8.5-10.1)
[2023-03-24 08:47] LABS: ALBUMIN 3.6 g/dl (3.4-5.0); BLOOD UREA NITROGEN 16.5 mg/dL (7-18); MAGNESIUM 2.6 mg/dL (1.8-2.4)
[2023-03-24 08:51] LABS: CREATININE 0.9 mg/dL (0.55-1.3)
[2023-03-24 08:52] LABS: BILIRUBIN,TOTAL 0.3 mg/dL (0.2-1); TOT PROT 7.4 g/dl (6.4-8.2)
[2023-03-24] MEDS: levETIRAcetam 500 MG/5 ML ORAL SOLUTION (UNIT-DOSE CUPS) GT SCH ×2 (09:40→21:56)
[2023-03-24] MEDS: POTASSIUM CHLORIDE ORAL LIQUID 20 MEQ/15 ML GT SCH (09:40)
[2023-03-24] MEDS: POLYETHYLENE GLYCOL (HEALTHYLAX) 3350 17 GM PACKET GT SCH (09:41)
[2023-03-24] MEDS: ENOXAPARIN NA (PORCINE) 40 MG/0.4 ML DISP.SYRIN SQ SCH (09:41)
[2023-03-24] MEDS: SODIUM CHLORIDE 1 GM TABLET GT SCH ×2 (09:41→21:48)
[2023-03-24] MEDS: CHOLECALCIFEROL (VIT D3) 1,000 UNIT (25 MCG) TABLET GT SCH (09:42)
[2023-03-24] MEDS: LACTOBACILLUS ACIDOPHILUS 1 TABLET GT SCH (09:42)
[2023-03-24] MEDS: SODIUM CHLORIDE 0.45% 1,000 ML IV SCH (17:18)
[2023-03-24] MEDS: SENNOSIDES 8.8 MG/5 ML BULK BOTTLE GT SCH (21:56)
[2023-03-25] MEDS: MEROPENEM 1 GM in DEXTROSE 5%-WATER 100 ML IVPB SCH ×3 (03:19→18:32)
[2023-03-25] MEDS: lamoTRIgine 100 MG TABLET GT SCH ×2 (06:59→21:53)
[2023-03-25] MEDS: BACLOFEN 10 MG TABLET (FP) GT SCH ×3 (06:59→21:53)
[2023-03-25] MEDS: OXcarbazepine 300 MG/5 ML 250 ML BULK BOTTLE GT SCH ×2 (07:00→22:12)
[2023-03-25 09:49] LABS: BASO % 1.5 % (0-2.0); EOS % 0.5 % (0-4.5); HEMOGLOBIN 12.7 GM/dL (11.7-16.9); LYMPH % 26.6 % (8-40); MCH 34.4 pg (25.7-33.7); MCHC 32.7 g/dl (32.0-35.9); MEAN CELL VOLUME 105.3 fl (80-96); MEAN PLT VOLUME 7.9 fl (7.5-11.1); MONO % 11.4 % (3.8-10.2); PLATELET COUNT 255 10^3/uL (134-434); RDW 13.9 % (11.9-15.9); WHITE BLOOD COUNT 6.6 K/mm3 (4.0-10.0)
[2023-03-25 10:09] LABS: POTASSIUM 3.7 mmol/L (3.5-5.1)
[2023-03-25 10:20] LABS: CALCIUM 8.5 mg/dL (8.5-10.1)
[2023-03-25 10:21] LABS: ALBUMIN 3.4 g/dl (3.4-5.0); MAGNESIUM 2.6 mg/dL (1.8-2.4)
[2023-03-25 10:24] LABS: CREATININE 0.8 mg/dL (0.55-1.3)
[2023-03-25 10:25] LABS: BILIRUBIN,TOTAL 0.5 mg/dL (0.2-1)
[2023-03-25 10:26] LABS: TOT PROT 6.9 g/dl (6.4-8.2)
[2023-03-25] MEDS: ENOXAPARIN NA (PORCINE) 40 MG/0.4 ML DISP.SYRIN SQ SCH (10:46)
[2023-03-25] MEDS: levETIRAcetam 500 MG/5 ML ORAL SOLUTION (UNIT-DOSE CUPS) GT SCH ×2 (10:46→21:54)
[2023-03-25] MEDS: SODIUM CHLORIDE 1 GM TABLET GT SCH ×2 (10:47→21:53)
[2023-03-25] MEDS: CHOLECALCIFEROL (VIT D3) 1,000 UNIT (25 MCG) TABLET GT SCH (10:47)
[2023-03-25] MEDS: LACTOBACILLUS ACIDOPHILUS 1 TABLET GT SCH (10:48)
[2023-03-25] MEDS: SODIUM CHLORIDE 0.45% 1,000 ML IV SCH ×2 (10:48→20:06)
[2023-03-25] MEDS ORDERED: POLYETHYLENE GLYCOL (HEALTHYLAX) 3350 17 GM PACKET GT SCH (14:00)
[2023-03-25] MEDS: SENNOSIDES 8.8 MG/5 ML SYRUP GT SCH (22:11)
[2023-03-26] MEDS: MEROPENEM 1 GM in DEXTROSE 5%-WATER 100 ML IVPB SCH ×3 (01:19→17:18)
[2023-03-26] MEDS: BACLOFEN 10 MG TABLET (FP) GT SCH ×3 (05:57→22:48)
[2023-03-26] MEDS: lamoTRIgine 100 MG TABLET GT SCH ×2 (06:01→22:49)
[2023-03-26] MEDS: OXcarbazepine 300 MG/5 ML 250 ML BULK BOTTLE GT SCH ×2 (06:02→22:53)
[2023-03-26 08:08] LABS: BASO % 0.5 % (0-2.0); EOS % 1.4 % (0-4.5); HEMOGLOBIN 12.7 GM/dL (11.7-16.9); LYMPH % 33.7 % (8-40); MCH 35.1 pg (25.7-33.7); MCHC 33.4 g/dl (32.0-35.9); MEAN PLT VOLUME 7.7 fl (7.5-11.1); MONO % 10.6 % (3.8-10.2); NEUT % 53.8 % (42.8-82.8); PLATELET COUNT 238 10^3/uL (134-434); RBC 3.62 M/mm3 (4.00-5.60); RDW 14.4 % (11.9-15.9); WHITE BLOOD COUNT 4.7 K/mm3 (4.0-10.0)
[2023-03-26 08:26] LABS: POTASSIUM 4.1 mmol/L (3.5-5.1)
[2023-03-26 08:34] LABS: BLOOD UREA NITROGEN 17.6 mg/dL (7-18); MAGNESIUM 2.9 mg/dL (1.8-2.4)
[2023-03-26 08:37] LABS: CREATININE 0.6 mg/dL (0.55-1.3)
[2023-03-26 08:39] LABS: BILIRUBIN,TOTAL 0.3 mg/dL (0.2-1); TOT PROT 6.1 g/dl (6.4-8.2)
[2023-03-26] MEDS: levETIRAcetam 500 MG/5 ML ORAL SOLUTION (UNIT-DOSE CUPS) GT SCH ×2 (09:51→22:48)
[2023-03-26] MEDS: LACTOBACILLUS ACIDOPHILUS 1 TABLET GT SCH (09:53)
[2023-03-26] MEDS: CHOLECALCIFEROL (VIT D3) 1,000 UNIT (25 MCG) TABLET GT SCH (09:53)
[2023-03-26] MEDS: SODIUM CHLORIDE 1 GM TABLET GT SCH (09:53)
[2023-03-26] MEDS: POLYETHYLENE GLYCOL (HEALTHYLAX) 3350 17 GM PACKET GT SCH (09:54)
[2023-03-26] MEDS: ENOXAPARIN NA (PORCINE) 40 MG/0.4 ML DISP.SYRIN SQ SCH (09:55)
[2023-03-26] MEDS: SODIUM CHLORIDE 0.45% 1,000 ML IV SCH (09:55)
[2023-03-26] MEDS: SENNOSIDES 8.8 MG/5 ML SYRUP GT SCH (22:50)
[2023-03-27] MEDS: MEROPENEM 1 GM in DEXTROSE 5%-WATER 100 ML IVPB SCH ×3 (02:43→17:28)
[2023-03-27] MEDS: lamoTRIgine 100 MG TABLET GT SCH ×2 (06:08→21:40)
[2023-03-27] MEDS: BACLOFEN 10 MG TABLET (FP) GT SCH ×3 (06:08→21:41)
[2023-03-27] MEDS: OXcarbazepine 300 MG/5 ML 250 ML BULK BOTTLE GT SCH ×2 (06:10→21:58)
[2023-03-27] MEDS: SODIUM CHLORIDE 0.45% 1,000 ML IV SCH (08:33)
[2023-03-27] MEDS: ENOXAPARIN NA (PORCINE) 40 MG/0.4 ML DISP.SYRIN SQ SCH (09:16)
[2023-03-27] MEDS: LACTOBACILLUS ACIDOPHILUS 1 TABLET GT SCH (09:22)
[2023-03-27] MEDS: POLYETHYLENE GLYCOL (HEALTHYLAX) 3350 17 GM PACKET GT SCH (09:23)
[2023-03-27] MEDS: CHOLECALCIFEROL (VIT D3) 1,000 UNIT (25 MCG) TABLET GT SCH (09:23)
[2023-03-27] MEDS: levETIRAcetam 500 MG/5 ML ORAL SOLUTION (UNIT-DOSE CUPS) GT SCH ×2 (09:23→21:40)
[2023-03-27 09:27] LABS: HEMATOCRIT 35.1 % (35.4-49); HEMOGLOBIN 11.9 GM/dL (11.7-16.9); LYMPH % 16.6 % (8-40); MCH 35.1 pg (25.7-33.7); MEAN CELL VOLUME 103.2 fl (80-96); MEAN PLT VOLUME 8.1 fl (7.5-11.1); MONO % 7.9 % (3.8-10.2); NEUT % 71.5 % (42.8-82.8); PLATELET COUNT 231 10^3/uL (134-434); RDW 14.6 % (11.9-15.9); WHITE BLOOD COUNT 6.6 K/mm3 (4.0-10.0)
[2023-03-27 09:47] LABS: BLOOD UREA NITROGEN 14.2 mg/dL (7-18); CALCIUM 8.2 mg/dL (8.5-10.1); MAGNESIUM 2.3 mg/dL (1.8-2.4)
[2023-03-27 09:48] LABS: ALBUMIN 3.1 g/dl (3.4-5.0)
[2023-03-27 09:52] LABS: BILIRUBIN,TOTAL 0.3 mg/dL (0.2-1); TOT PROT 6.2 g/dl (6.4-8.2)
[2023-03-27 09:54] LABS: CREATININE 0.7 mg/dL (0.55-1.3)
[2023-03-27 16:52] VITALS: BMI 17.2
[2023-03-27] MEDS: SENNOSIDES 8.8 MG/5 ML SYRUP GT SCH (22:02)
[2023-03-28] MEDS: MEROPENEM 1 GM in DEXTROSE 5%-WATER 100 ML IVPB SCH ×3 (01:44→17:27)
[2023-03-28] MEDS: BACLOFEN 10 MG TABLET (FP) GT SCH ×3 (06:31→21:13)
[2023-03-28] MEDS: lamoTRIgine 100 MG TABLET GT SCH ×2 (06:31→21:14)
[2023-03-28 09:29] LABS: BASO % 1.2 % (0-2.0); EOS % 4.1 % (0-4.5); HEMATOCRIT 35.3 % (35.4-49); HEMOGLOBIN 12.2 GM/dL (11.7-16.9); LYMPH % 34.2 % (8-40); MCHC 34.5 g/dl (32.0-35.9); MEAN CELL VOLUME 104.2 fl (80-96); MEAN PLT VOLUME 8.4 fl (7.5-11.1); MONO % 11.9 % (3.8-10.2); NEUT % 48.6 % (42.8-82.8); PLATELET COUNT 269 10^3/uL (134-434); RBC 3.39 M/mm3 (4.00-5.60); RDW 14.3 % (11.9-15.9); WHITE BLOOD COUNT 4.9 K/mm3 (4.0-10.0)
[2023-03-28] MEDS: ENOXAPARIN NA (PORCINE) 40 MG/0.4 ML DISP.SYRIN SQ SCH (09:32)
[2023-03-28] MEDS: levETIRAcetam 500 MG/5 ML ORAL SOLUTION (UNIT-DOSE CUPS) GT SCH ×2 (09:35→21:13)
[2023-03-28] MEDS: CHOLECALCIFEROL (VIT D3) 1,000 UNIT (25 MCG) TABLET GT SCH (09:35)
[2023-03-28] MEDS: LACTOBACILLUS ACIDOPHILUS 1 TABLET GT SCH (09:35)
[2023-03-28] MEDS: POLYETHYLENE GLYCOL (HEALTHYLAX) 3350 17 GM PACKET GT SCH (09:42)
[2023-03-28 09:44] LABS: POTASSIUM 4.1 mmol/L (3.5-5.1)
[2023-03-28] MEDS: OXcarbazepine 300 MG/5 ML 250 ML BULK BOTTLE GT SCH ×2 (09:46→22:07)
[2023-03-28 10:05] VITALS: RESP 18
[2023-03-28 10:07] LABS: CALCIUM 8.5 mg/dL (8.5-10.1)
[2023-03-28 10:08] LABS: BLOOD UREA NITROGEN 14.2 mg/dL (7-18); MAGNESIUM 2.4 mg/dL (1.8-2.4)
[2023-03-28 10:13] LABS: TOT PROT 6.4 g/dl (6.4-8.2)
[2023-03-28 10:14] LABS: CREATININE 0.6 mg/dL (0.55-1.3)
[2023-03-28 10:16] LABS: BILIRUBIN,TOTAL 0.5 mg/dL (0.2-1)
[2023-03-28] MEDS: SENNOSIDES 8.8 MG/5 ML SYRUP GT SCH (21:14)
[2023-03-29] MEDS: MEROPENEM 1 GM in DEXTROSE 5%-WATER 100 ML IVPB SCH ×2 (01:44→09:01)
[2023-03-29] MEDS: BACLOFEN 10 MG TABLET (FP) GT SCH (06:01)
[2023-03-29] MEDS: lamoTRIgine 100 MG TABLET GT SCH (06:01)
[2023-03-29] MEDS: OXcarbazepine 300 MG/5 ML 250 ML BULK BOTTLE GT SCH (06:03)
[2023-03-29] MEDS: levETIRAcetam 500 MG/5 ML ORAL SOLUTION (UNIT-DOSE CUPS) GT SCH (09:01)
[2023-03-29] MEDS: CHOLECALCIFEROL (VIT D3) 1,000 UNIT (25 MCG) TABLET GT SCH (09:01)
[2023-03-29] MEDS: LACTOBACILLUS ACIDOPHILUS 1 TABLET GT SCH (09:01)
[2023-03-29] MEDS: ENOXAPARIN NA (PORCINE) 40 MG/0.4 ML DISP.SYRIN SQ SCH (09:01)
[2023-03-29] MEDS: POLYETHYLENE GLYCOL (HEALTHYLAX) 3350 17 GM PACKET GT SCH (09:02)
[2023-03-29 10:20] VITALS: BP 100/68; PULSE 96; TEMP 97.5
== END 2023-03-29 11:18 | DRG 698 ==
LOC: JER 12:49 → JERBED 17:17 → J8W 03-22 20:27
PROVIDERS: ADMIT Internal Medicine; ATTEND Nurse Practitioner Family
DX: T83.510A Infection and inflammatory reaction due to cystostomy catheter, initial encounter (principal); A41.9 Sepsis, unspecified organism; R53.2 Functional quadriplegia; N39.0 Urinary tract infection, site not specified; F73 Profound intellectual disabilities; G83.0 Diplegia of upper limbs; Q90.9 Down syndrome, unspecified; Z93.1 Gastrostomy status; G40.909 Epilepsy, unspecified, not intractable, without status epilepticus; E03.9 Hypothyroidism, unspecified; K21.9 Gastro-esophageal reflux disease without esophagitis; Y83.9 Surgical procedure, unspecified as the cause of abnormal reaction of the patient, or of later complication, without mention of misadventure at the time of the procedure
CPT/HCPCS: 0241U-QW; 36415; 71045-TC-FY; 74176-TC; 80053; 81003; 82803; 83605; 83735; 84100; 85025; 85027; 86682; 87040; 87086; 87186; 87635; 93005; 93010; 99285-25; J0475

== ENCOUNTER 2023-06-16 22:18 | Inpatient (IN) | payer OTHER ==
[2023-06-16 23:08] LABS: BASO % 1.4 % (0-2.0); EOS % 1.6 % (0-4.5); HEMATOCRIT 39.4 % (35.4-49); HEMOGLOBIN 13.4 GM/dL (11.7-16.9); LYMPH % 44.7 % (8-40); MCH 35.5 pg (25.7-33.7); MCHC 33.9 g/dl (32.0-35.9); MEAN CELL VOLUME 104.6 fl (80-96); MEAN PLT VOLUME 7.6 fl (7.5-11.1); MONO % 11.1 % (3.8-10.2); NEUT % 41.2 % (42.8-82.8); PLATELET COUNT 329 10^3/uL (134-434); RBC 3.76 M/mm3 (4.00-5.60); WHITE BLOOD COUNT 4.7 K/mm3 (4.0-10.0)
[2023-06-16 23:10] LABS: VENOUS O2 SATURATION 66.2 % (70-80); VENOUS PCO2 68.8 mmHg (38-52); VENOUS PH 7.308 (7.310-7.410)
[2023-06-16 23:14] LABS: INR 1.01 (0.83-1.09); PROTHROMBIN TIME (PATIENT) 11.7 SEC (9.7-13.0)
[2023-06-16 23:16] LABS: ACTIVATED PTT 34.9 SECONDS (25.2-36.5)
[2023-06-16] MEDS ORDERED: ACETAMINOPHEN INJECTION 100 ML IVPB ONE (23:28)
[2023-06-16] MEDS: ACETAMINOPHEN 1000 MG/100 ML BAG IVPB ONE (23:35)
[2023-06-16 23:40] LABS: CALCIUM 10.9 mg/dL (8.5-10.1)
[2023-06-16 23:41] LABS: ALBUMIN 3.5 g/dl (3.4-5.0); BLOOD UREA NITROGEN 23.5 mg/dL (7-18)
[2023-06-16 23:45] LABS: BILIRUBIN,TOTAL 0.2 mg/dL (0.2-1); TOT PROT 7.9 g/dl (6.4-8.2)
[2023-06-16 23:59] LABS: EPI CELLS 15 /uL (0-25.1); HYALINE CASTS 0 /uL (0-3.1); PH,URINE 7.5 (5.0-8.0); URINE APPEARANCE CLEAR; URINE BACTERIA 272 /uL (0-1359); URINE BILIRUBIN NEGATIVE (NEGATIVE); URINE COLOR YELLOW; URINE GLUCOSE (UA) NEGATIVE (NEGATIVE); URINE KETONE NEGATIVE (NEGATIVE); URINE LEUK ESTERASE 2+ (NEGATIVE); URINE NITRITE NEGATIVE (NEGATIVE); URINE PROTEIN NEGATIVE (NEGATIVE); URINE RBC 11 /uL (0-23.9); URINE UROBILINOGEN 0.2 mg/dL (0.2-1.0); URINE WBC 63 /uL (0-25.8)
[2023-06-17] MEDS ORDERED: DEXTROSE 5%-WATER 100 ML IVPB ONE (00:44)
[2023-06-17] MEDS ORDERED: MEROPENEM 1 GM VIAL (RESTRICTED TO ID) IVPB ONE ×2 (00:44→10:00)
[2023-06-17] MEDS: MEROPENEM 1 GM in DEXTROSE 5%-WATER 100 ML IVPB ONE (00:55)
[2023-06-17] MEDS ORDERED: SIMETHICONE 40 MG/0.6 ML BOTTLE GT PRN (02:33)
[2023-06-17] MEDS ORDERED: VITAMINS A AND D TOPICAL OINTMENT 60 GM TUBE TP PRN (02:33)
[2023-06-17] MEDS ORDERED: BISACODYL 10 MG SUPP.RECT PR PRN (02:45)
[2023-06-17] MEDS ORDERED: MAG HYDROX/AL HYDROX/SIMETH 30 ML UNIT-DOSE CUP ONE (05:45)
[2023-06-17] MEDS: MAG HYDROX/AL HYDROX/SIMETH 30 ML UNIT-DOSE CUP GT SCH (05:54)
[2023-06-17 06:31] LABS: HEMATOCRIT 37.7 % (35.4-49); HEMOGLOBIN 12.5 GM/dL (11.7-16.9); MCH 35.3 pg (25.7-33.7); MCHC 33.3 g/dl (32.0-35.9); MEAN PLT VOLUME 7.7 fl (7.5-11.1); PLATELET COUNT 315 10^3/uL (134-434); RBC 3.56 M/mm3 (4.00-5.60); RDW 14.5 % (11.9-15.9); WHITE BLOOD COUNT 5.9 K/mm3 (4.0-10.0)
[2023-06-17 06:33] LABS: CALCIUM 11.6 mg/dL (8.5-10.1)
[2023-06-17 06:34] LABS: ALBUMIN 3.4 g/dl (3.4-5.0); BLOOD UREA NITROGEN 24.1 mg/dL (7-18)
[2023-06-17 06:37] LABS: PHOSPHOROUS 4.7 mg/dL (2.5-4.9)
[2023-06-17 06:38] LABS: TOT PROT 7.7 g/dl (6.4-8.2)
[2023-06-17 06:39] LABS: BILIRUBIN,TOTAL 0.2 mg/dL (0.2-1)
[2023-06-17 06:45] LABS: ADD RBC MORPHOLOGY YES
[2023-06-17] MEDS: ZINC OXIDE 20% TOPICAL OINTMENT 30 GM TUBE TP SCH (09:00)
[2023-06-17 10:23] LABS: ANISOCYTOSIS 2+; MACROCYTOSIS 2+
[2023-06-17] MEDS: lamoTRIgine 100 MG TABLET GT SCH (10:48)
[2023-06-17] MEDS: OXcarbazepine 300 MG/5 ML UNIT DOSE CUPS GT SCH (10:48)
[2023-06-17] MEDS: LORATADINE 10 MG TABLET GT SCH (10:49)
[2023-06-17] MEDS: POLYETHYLENE GLYCOL (HEALTHYLAX) 3350 17 GM PACKET PO SCH (10:49)
[2023-06-17] MEDS: levETIRAcetam 500 MG/5 ML ORAL SOLUTION (UNIT-DOSE CUPS) GT SCH (10:49)
[2023-06-17] MEDS: ENOXAPARIN NA (PORCINE) 40 MG/0.4 ML DISP.SYRIN SQ SCH (10:52)
[2023-06-17] MEDS: MEROPENEM 1 GM in DEXTROSE 5%-WATER 100 ML IVPB SCH (10:52)
[2023-06-17] MEDS: FLUTICASONE PROP 0.05% 16 GM NASAL SPRAY NS SCH (13:50)
[2023-06-17] MEDS: TUBE FEED DECLOGGING SOLUTION 12,000 UNITS GT ONE (13:50)
[2023-06-17] MEDS: VANCOMYCIN/WATER FOR INJ (PEG) 750 MG/150 ML BAG IVPB SCH (16:30)
[2023-06-17] MEDS: VANCOMYCIN 750 MG in DEXTROSE 5%-WATER - 150 ML IVPB SCH (16:30)
[2023-06-17] MEDS: lamoTRIgine 100 MG TABLET PO SCH (23:16)
[2023-06-17] MEDS: ACETAMINOPHEN 650 MG/20.3 ML ORAL SOLUTION (CUPS) GT PRN (23:20)
[2023-06-18] MEDS: OXcarbazepine 300 MG/5 ML UNIT DOSE CUPS GT SCH (01:07)
[2023-06-18 08:43] LABS: BASO % 1.7 % (0-2.0); EOS % 0.8 % (0-4.5); HEMATOCRIT 37.9 % (35.4-49); HEMOGLOBIN 12.8 GM/dL (11.7-16.9); LYMPH % 20.3 % (8-40); MCH 35.4 pg (25.7-33.7); MCHC 33.9 g/dl (32.0-35.9); MEAN CELL VOLUME 104.4 fl (80-96); MEAN PLT VOLUME 7.8 fl (7.5-11.1); MONO % 7.6 % (3.8-10.2); NEUT % 69.6 % (42.8-82.8); PLATELET COUNT 345 10^3/uL (134-434); RBC 3.63 M/mm3 (4.00-5.60); RDW 14.5 % (11.9-15.9); WHITE BLOOD COUNT 6.2 K/mm3 (4.0-10.0)
[2023-06-18 08:59] LABS: CALCIUM 11.5 mg/dL (8.5-10.1)
[2023-06-18 09:00] LABS: ALBUMIN 3.7 g/dl (3.4-5.0); BLOOD UREA NITROGEN 21.3 mg/dL (7-18); MAGNESIUM 2.7 mg/dL (1.8-2.4)
[2023-06-18 09:03] LABS: CREATININE 1.1 mg/dL (0.55-1.3)
[2023-06-18 09:05] LABS: BILIRUBIN,TOTAL 0.3 mg/dL (0.2-1); TOT PROT 8.2 g/dl (6.4-8.2)
[2023-06-18] MEDS: MEROPENEM 1 GM in DEXTROSE 5%-WATER 100 ML IVPB SCH (12:38)
[2023-06-18 13:43] VITALS: BMI 18.5
[2023-06-19 08:20] LABS: POTASSIUM 4.1 mmol/L (3.5-5.1)
[2023-06-19 08:24] LABS: ALBUMIN 3.8 g/dl (3.4-5.0); BLOOD UREA NITROGEN 22.6 mg/dL (7-18); CALCIUM 11.6 mg/dL (8.5-10.1); MAGNESIUM 2.9 mg/dL (1.8-2.4)
[2023-06-19 08:27] LABS: CREATININE 1.3 mg/dL (0.55-1.3)
[2023-06-19 08:29] LABS: BILIRUBIN,TOTAL 0.3 mg/dL (0.2-1); TOT PROT 8.5 g/dl (6.4-8.2)
[2023-06-19 08:32] LABS: BASO % 0.8 % (0-2.0); EOS % 0.1 % (0-4.5); HEMATOCRIT 40.1 % (35.4-49); HEMOGLOBIN 13.9 GM/dL (11.7-16.9); LYMPH % 12.5 % (8-40); MCH 36.2 pg (25.7-33.7); MCHC 34.7 g/dl (32.0-35.9); MEAN CELL VOLUME 104.3 fl (80-96); MEAN PLT VOLUME 8.1 fl (7.5-11.1); MONO % 7.8 % (3.8-10.2); NEUT % 78.8 % (42.8-82.8); PLATELET COUNT 360 10^3/uL (134-434); RBC 3.84 M/mm3 (4.00-5.60); RDW 14.4 % (11.9-15.9); WHITE BLOOD COUNT 10.7 K/mm3 (4.0-10.0)
[2023-06-19] MEDS: SODIUM CHLORIDE 1,000 ML IV SCH (09:55)
[2023-06-19] MEDS: MINERAL OIL/PET HY-PHL TOPICAL OINTMENT 454 GM JAR TP SCH (16:32)
[2023-06-19] MEDS: BACLOFEN 10 MG TABLET (FP) GT SCH (16:34)
[2023-06-19] MEDS ORDERED: PATIENT'S OWN MEDICATION (NON-FORMULARY) (Tizanidine Hcl [Tizanidine Hcl] 4 MG Tablet) GT SCH (22:00)
[2023-06-20 09:59] LABS: EOS % 0.4 % (0-4.5); HEMATOCRIT 38.3 % (35.4-49); HEMOGLOBIN 12.6 GM/dL (11.7-16.9); MEAN CELL VOLUME 106.1 fl (80-96); MONO % 10.7 % (3.8-10.2); NEUT % 58.9 % (42.8-82.8); PLATELET COUNT 306 10^3/uL (134-434); RBC 3.61 M/mm3 (4.00-5.60); RDW 14.3 % (11.9-15.9); WHITE BLOOD COUNT 6.5 K/mm3 (4.0-10.0)
[2023-06-20 10:14] LABS: POTASSIUM 3.9 mmol/L (3.5-5.1)
[2023-06-20 10:27] LABS: ALBUMIN 3.2 g/dl (3.4-5.0)
[2023-06-20 10:28] LABS: BILIRUBIN,TOTAL 0.2 mg/dL (0.2-1)
[2023-06-20 10:38] LABS: BLOOD UREA NITROGEN 26.4 mg/dL (7-18); MAGNESIUM 3.3 mg/dL (1.8-2.4)
[2023-06-20 10:39] LABS: CALCIUM 9.5 mg/dL (8.5-10.1)
[2023-06-20 10:41] LABS: ANISOCYTOSIS 0; MACROCYTOSIS 2+
[2023-06-21 08:23] LABS: POTASSIUM 3.7 mmol/L (3.5-5.1)
[2023-06-21 08:26] LABS: BASO % 1.3 % (0-2.0); EOS % 1.1 % (0-4.5); HEMATOCRIT 35.4 % (35.4-49); HEMOGLOBIN 12.2 GM/dL (11.7-16.9); LYMPH % 16.9 % (8-40); MCH 36.4 pg (25.7-33.7); MCHC 34.5 g/dl (32.0-35.9); MEAN CELL VOLUME 105.4 fl (80-96); MEAN PLT VOLUME 8.3 fl (7.5-11.1); MONO % 7.1 % (3.8-10.2); NEUT % 73.6 % (42.8-82.8); PLATELET COUNT 309 10^3/uL (134-434); RBC 3.36 M/mm3 (4.00-5.60); RDW 14.7 % (11.9-15.9); WHITE BLOOD COUNT 7.5 K/mm3 (4.0-10.0)
[2023-06-21 08:29] LABS: CALCIUM 8.7 mg/dL (8.5-10.1)
[2023-06-21 08:30] LABS: ALBUMIN 3.1 g/dl (3.4-5.0); BLOOD UREA NITROGEN 27.9 mg/dL (7-18)
[2023-06-21 08:33] LABS: CREATININE 0.9 mg/dL (0.55-1.3)
[2023-06-21 08:34] LABS: BILIRUBIN,TOTAL 0.3 mg/dL (0.2-1); TOT PROT 6.8 g/dl (6.4-8.2)
[2023-06-21] MEDS: SCOPOLAMINE HYDROBROMIDE 1 PATCH PATCH.TD72 TD SCH (13:38)
[2023-06-21] MEDS: levETIRAcetam 500 MG/5 ML INJECTION VIAL IVPB SCH (23:56)
[2023-06-22] MEDS: ACETAMINOPHEN 1000 MG/100 ML BAG IVPB PRN (06:01)
[2023-06-22 07:41] LABS: BASO % 0.7 % (0-2.0); EOS % 0.1 % (0-4.5); HEMATOCRIT 38.2 % (35.4-49); HEMOGLOBIN 13.1 GM/dL (11.7-16.9); LYMPH % 16.5 % (8-40); MCH 35.7 pg (25.7-33.7); MCHC 34.2 g/dl (32.0-35.9); MEAN CELL VOLUME 104.1 fl (80-96); MEAN PLT VOLUME 8.2 fl (7.5-11.1); MONO % 6.2 % (3.8-10.2); NEUT % 76.5 % (42.8-82.8); PLATELET COUNT 317 10^3/uL (134-434); RBC 3.67 M/mm3 (4.00-5.60); RDW 14.7 % (11.9-15.9); WHITE BLOOD COUNT 7.2 K/mm3 (4.0-10.0)
[2023-06-22 07:46] LABS: CALCIUM 9.4 mg/dL (8.5-10.1)
[2023-06-22 07:47] LABS: ALBUMIN 3.5 g/dl (3.4-5.0); BLOOD UREA NITROGEN 20.6 mg/dL (7-18); MAGNESIUM 3.1 mg/dL (1.8-2.4)
[2023-06-22 07:51] LABS: BILIRUBIN,TOTAL 0.4 mg/dL (0.2-1); TOT PROT 7.6 g/dl (6.4-8.2)
[2023-06-22] MEDS: AMINO ACIDS 4.25%/D5W 1,000 ML IV SCH (12:10)
[2023-06-22] MEDS: Lacosamide 200 MG/20 ML VIAL IVPB SCH (12:21)
[2023-06-22] MEDS: LORazepam 2 MG/ML SDV VIAL IVPUSH ONE (12:34)
[2023-06-22] MEDS: LORazepam 2 MG/ML SDV VIAL IVPUSH SCH (15:46)
[2023-06-23 09:18] LABS: BASO % 1.1 % (0-2.0); HEMATOCRIT 37.9 % (35.4-49); HEMOGLOBIN 12.5 GM/dL (11.7-16.9); LYMPH % 19.3 % (8-40); MCH 34.9 pg (25.7-33.7); MCHC 32.9 g/dl (32.0-35.9); MEAN CELL VOLUME 105.8 fl (80-96); MEAN PLT VOLUME 8.4 fl (7.5-11.1); MONO % 7.3 % (3.8-10.2); NEUT % 72.3 % (42.8-82.8); PLATELET COUNT 323 10^3/uL (134-434); RBC 3.58 M/mm3 (4.00-5.60); RDW 14.8 % (11.9-15.9); WHITE BLOOD COUNT 7.8 K/mm3 (4.0-10.0)
[2023-06-23 09:41] LABS: POTASSIUM 3.5 mmol/L (3.5-5.1)
[2023-06-23 09:56] LABS: BLOOD UREA NITROGEN 24.5 mg/dL (7-18); CALCIUM 8.7 mg/dL (8.5-10.1)
[2023-06-23 09:57] LABS: ALBUMIN 3.3 g/dl (3.4-5.0); MAGNESIUM 2.6 mg/dL (1.8-2.4)
[2023-06-23 09:58] LABS: CREATININE 0.9 mg/dL (0.55-1.3)
[2023-06-23 09:59] LABS: BILIRUBIN,TOTAL 0.4 mg/dL (0.2-1)
[2023-06-23 10:01] LABS: TOT PROT 7.5 g/dl (6.4-8.2)
[2023-06-23] MEDS: ACETAMINOPHEN 325 MG TABLET (FP) PO ONE (18:25)
[2023-06-24 09:34] LABS: BASO % 1.1 % (0-2.0); EOS % 1.8 % (0-4.5); HEMATOCRIT 31.3 % (35.4-49); HEMOGLOBIN 10.7 GM/dL (11.7-16.9); LYMPH % 14.7 % (8-40); MCH 36.2 pg (25.7-33.7); MCHC 34.1 g/dl (32.0-35.9); MEAN CELL VOLUME 106.2 fl (80-96); MEAN PLT VOLUME 8.5 fl (7.5-11.1); MONO % 6.9 % (3.8-10.2); NEUT % 75.5 % (42.8-82.8); PLATELET COUNT 308 10^3/uL (134-434); RBC 2.95 M/mm3 (4.00-5.60); RDW 14.6 % (11.9-15.9); WHITE BLOOD COUNT 9.9 K/mm3 (4.0-10.0)
[2023-06-24 10:11] LABS: POTASSIUM 3.4 mmol/L (3.5-5.1)
[2023-06-24 10:14] LABS: ALBUMIN 2.9 g/dl (3.4-5.0); BLOOD UREA NITROGEN 24.9 mg/dL (7-18); CALCIUM 7.8 mg/dL (8.5-10.1)
[2023-06-24 10:18] LABS: CREATININE 0.8 mg/dL (0.55-1.3)
[2023-06-24 10:20] LABS: BILIRUBIN,TOTAL 0.2 mg/dL (0.2-1); TOT PROT 6.2 g/dl (6.4-8.2)
[2023-06-24] MEDS: POTASSIUM CHLORIDE ORAL LIQUID 20 MEQ/15 ML PO ONE (10:33)
[2023-06-24 11:42] LABS: ANISOCYTOSIS 2+; MACROCYTOSIS 2+
[2023-06-25 09:13] LABS: BASO % 0.7 % (0-2.0); EOS % 4.2 % (0-4.5); HEMATOCRIT 32.5 % (35.4-49); HEMOGLOBIN 11.2 GM/dL (11.7-16.9); LYMPH % 12.3 % (8-40); MCH 36.2 pg (25.7-33.7); MCHC 34.5 g/dl (32.0-35.9); MEAN CELL VOLUME 104.9 fl (80-96); MEAN PLT VOLUME 8.2 fl (7.5-11.1); MONO % 7.3 % (3.8-10.2); NEUT % 75.5 % (42.8-82.8); PLATELET COUNT 326 10^3/uL (134-434); RDW 14.5 % (11.9-15.9); WHITE BLOOD COUNT 8.2 K/mm3 (4.0-10.0)
[2023-06-25 09:57] LABS: POTASSIUM 4.1 mmol/L (3.5-5.1)
[2023-06-25 10:01] LABS: ALBUMIN 2.8 g/dl (3.4-5.0); BLOOD UREA NITROGEN 17.9 mg/dL (7-18); CALCIUM 7.9 mg/dL (8.5-10.1); MAGNESIUM 3.1 mg/dL (1.8-2.4)
[2023-06-25 10:04] LABS: CREATININE 0.7 mg/dL (0.55-1.3)
[2023-06-25 10:06] LABS: BILIRUBIN,TOTAL 0.2 mg/dL (0.2-1); TOT PROT 6.2 g/dl (6.4-8.2)
[2023-06-25 14:27] VITALS: BP 111/70; PULSE 110; RESP 20; TEMP 98.1
== END 2023-06-25 17:10 | DRG 917 ==
LOC: JER 22:18 → JERBED 06-17 00:48 → OBSVTOIN 06-17 10:49 → J7W 06-17 11:37
PROVIDERS: ADMIT Internal Medicine; ATTEND Nurse Practitioner Family
PROC: 0D20XUZ Change Feeding Device in Upper Intestinal Tract, External Approach (ICD-10-PCS; principal; 2023-06-22)
DX: T42.4X1A Poisoning by benzodiazepines, accidental (unintentional), initial encounter (principal); J18.9 Pneumonia, unspecified organism; J96.01 Acute respiratory failure with hypoxia; R53.2 Functional quadriplegia; G83.0 Diplegia of upper limbs; N39.0 Urinary tract infection, site not specified; F72 Severe intellectual disabilities; K94.23 Gastrostomy malfunction; K21.9 Gastro-esophageal reflux disease without esophagitis; G80.9 Cerebral palsy, unspecified; R50.9 Fever, unspecified; G40.909 Epilepsy, unspecified, not intractable, without status epilepticus; H66.93 Otitis media, unspecified, bilateral; R53.83 Other fatigue; N31.9 Neuromuscular dysfunction of bladder, unspecified; E03.9 Hypothyroidism, unspecified; Q90.9 Down syndrome, unspecified; B96.5 Pseudomonas (aeruginosa) (mallei) (pseudomallei) as the cause of diseases classified elsewhere; Z88.0 Allergy status to penicillin; Z93.1 Gastrostomy status; Z93.50 Unspecified cystostomy status; Y92.098 Other place in other non-institutional residence as the place of occurrence of the external cause; Y84.8 Other medical procedures as the cause of abnormal reaction of the patient, or of later complication, without mention of misadventure at the time of the procedure
CPT/HCPCS: 0241U-QW; 36415; 71045-TC-FY; 76775-TC; 80053; 81003; 82550; 82803; 83605; 83735; 84100; 84484; 85025; 85610; 85730; 86850; 86900; 86901; 87040; 87086; 87186; 87324; 87449; 87635; 93005; 93010; 94761; 99285-25; G0378; J0131; J0475

== ENCOUNTER 2024-03-21 10:22 | Inpatient (IN) | payer OTHER ==
[2024-03-21 10:36] VITALS: BMI 16.9
[2024-03-21] MEDS ORDERED: LORATADINE 10 MG TABLET GT PRN (15:54)
[2024-03-21] MEDS ORDERED: PATIENT'S OWN MEDICATION (NON-FORMULARY) (Diazepam [Valtoco] 10 MG/0.1 ML Spray) NS PRN (15:54)
[2024-03-21 19:52] LABS: BASO % 1.4 % (0-2.0); EOS % 3.6 % (0-4.5); HEMATOCRIT 39.5 % (35.4-49); HEMOGLOBIN 13.4 GM/dL (11.7-16.9); LYMPH % 26.2 % (8-40); MCH 35.2 pg (25.7-33.7); MEAN CELL VOLUME 103.6 fl (80-96); MEAN PLT VOLUME 7.9 fl (7.5-11.1); MONO % 9.5 % (3.8-10.2); NEUT % 59.3 % (42.8-82.8); PLATELET COUNT 289 10^3/uL (134-434); RBC 3.82 M/mm3 (4.00-5.60); RDW 13.5 % (11.9-15.9); WHITE BLOOD COUNT 5.5 K/mm3 (4.0-10.0)
[2024-03-21 20:03] LABS: POTASSIUM 3.9 mmol/L (3.5-5.1)
[2024-03-21 20:06] LABS: CALCIUM 9.4 mg/dL (8.5-10.1)
[2024-03-21 20:11] LABS: BILIRUBIN,TOTAL 0.4 mg/dL (0.2-1); TOT PROT 7.8 g/dl (6.4-8.2)
[2024-03-21] MEDS ORDERED: NITROFURANTOIN MACROCRYSTAL 50 MG CAPSULE (FP) ONE (22:47)
[2024-03-21] MEDS ORDERED: BACLOFEN 10 MG TABLET (FP) ONE (22:47)
[2024-03-21] MEDS ORDERED: SENNOSIDES 8.6MG TABLET (FP) PO ONE (22:47)
[2024-03-21] MEDS ORDERED: lamoTRIgine 100 MG TABLET ONE (22:47)
[2024-03-21] MEDS: BACLOFEN 10 MG TABLET (FP) GT SCH (23:04)
[2024-03-21] MEDS: SENNOSIDES 8.6MG TABLET (FP) PO SCH (23:04)
[2024-03-21] MEDS: NITROFURANTOIN MACROCRYSTAL 50 MG CAPSULE (FP) GT SCH (23:04)
[2024-03-21] MEDS: levETIRAcetam 500 MG/5 ML ORAL SOLUTION (UNIT-DOSE CUPS) GT SCH (23:04)
[2024-03-21] MEDS: SODIUM CHLORIDE 1 GM TABLET GT SCH (23:05)
[2024-03-21] MEDS: lamoTRIgine 100 MG TABLET PO SCH (23:05)
[2024-03-22 08:36] LABS: POTASSIUM 4.1 mmol/L (3.5-5.1)
[2024-03-22 08:40] LABS: BASO % 1.3 % (0-2.0); EOS % 5.1 % (0-4.5); HEMATOCRIT 40.5 % (35.4-49); HEMOGLOBIN 13.8 GM/dL (11.7-16.9); LYMPH % 22.7 % (8-40); MCH 35.6 pg (25.7-33.7); MCHC 34.1 g/dl (32.0-35.9); MEAN CELL VOLUME 104.4 fl (80-96); MEAN PLT VOLUME 8.2 fl (7.5-11.1); MONO % 13.1 % (3.8-10.2); NEUT % 57.8 % (42.8-82.8); PLATELET COUNT 280 10^3/uL (134-434); RBC 3.88 M/mm3 (4.00-5.60); RDW 13.6 % (11.9-15.9)
[2024-03-22 08:51] LABS: CALCIUM 10.5 mg/dL (8.5-10.1)
[2024-03-22 08:52] LABS: BLOOD UREA NITROGEN 17.4 mg/dL (7-18)
[2024-03-22] MEDS: OXcarbazepine 300 MG/5 ML UNIT DOSE CUPS GT SCH (09:08)
[2024-03-22] MEDS: CHOLECALCIFEROL (VIT D3) 1,000 UNIT (25 MCG) TABLET GT SCH (09:12)
[2024-03-22] MEDS: LACTOBACILLUS ACIDOPHILUS 1 TABLET GT SCH (09:12)
[2024-03-22] MEDS: lamoTRIgine 100 MG TABLET GT SCH (09:12)
[2024-03-22] MEDS ORDERED: OXcarbazepine 300 MG/5 ML UNIT DOSE CUPS GT SCH (10:00)
[2024-03-22] MEDS: PATIENT'S OWN MEDICATION (NON-FORMULARY) (Tizanidine Hcl [Tizanidine Hcl] 4 MG Tablet) GT SCH (20:20)
[2024-03-22] MEDS: NITROFURANTOIN MACROCRYSTAL 50 MG CAPSULE (FP) GT SCH (21:36)
[2024-03-22] MEDS: HEPARIN NA (PORCINE) 5,000 UNITS/ML 1ML VIAL SQ SCH (21:39)
[2024-03-23] MEDS: ACETAMINOPHEN 650 MG/20.3 ML ORAL SOLUTION (CUPS) GT PRN (05:55)
[2024-03-23 11:01] LABS: BASO % 1.1 % (0-2.0); EOS % 0.4 % (0-4.5); HEMATOCRIT 41.7 % (35.4-49); HEMOGLOBIN 14.1 GM/dL (11.7-16.9); LYMPH % 13.6 % (8-40); MCH 35.5 pg (25.7-33.7); MCHC 33.7 g/dl (32.0-35.9); MEAN CELL VOLUME 105.2 fl (80-96); MEAN PLT VOLUME 8.1 fl (7.5-11.1); MONO % 6.6 % (3.8-10.2); NEUT % 78.3 % (42.8-82.8); PLATELET COUNT 296 10^3/uL (134-434); RBC 3.96 M/mm3 (4.00-5.60); RDW 13.4 % (11.9-15.9); WHITE BLOOD COUNT 8.9 K/mm3 (4.0-10.0)
[2024-03-23 11:50] LABS: CALCIUM 10.5 mg/dL (8.5-10.1)
[2024-03-23 11:51] LABS: BLOOD UREA NITROGEN 24.2 mg/dL (7-18)
[2024-03-23 11:54] LABS: CREATININE 1.2 mg/dL (0.55-1.3)
[2024-03-23 11:58] LABS: ANISOCYTOSIS 1+; MACROCYTOSIS 1+
[2024-03-24 08:23] LABS: BASO % 0.8 % (0-2.0); HEMOGLOBIN 14.3 GM/dL (11.7-16.9); LYMPH % 17.5 % (8-40); MCH 35.2 pg (25.7-33.7); MCHC 33.2 g/dl (32.0-35.9); MEAN CELL VOLUME 105.9 fl (80-96); MONO % 6.5 % (3.8-10.2); NEUT % 75.2 % (42.8-82.8); PLATELET COUNT 262 10^3/uL (134-434); RBC 4.06 M/mm3 (4.00-5.60); RDW 13.6 % (11.9-15.9); WHITE BLOOD COUNT 8.3 K/mm3 (4.0-10.0)
[2024-03-24 08:27] LABS: INR 1.03 (0.83-1.09); PROTHROMBIN TIME (PATIENT) 11.6 SEC (9.7-13.0)
[2024-03-24 08:58] LABS: POTASSIUM 4.1 mmol/L (3.5-5.1)
[2024-03-24 09:01] LABS: BLOOD UREA NITROGEN 25.1 mg/dL (7-18); CALCIUM 10.6 mg/dL (8.5-10.1); MAGNESIUM 2.6 mg/dL (1.8-2.4)
[2024-03-24 09:02] LABS: ALBUMIN 3.9 g/dl (3.4-5.0)
[2024-03-24 09:04] LABS: CREATININE 1.1 mg/dL (0.55-1.3)
[2024-03-24 09:06] LABS: BILIRUBIN,TOTAL 0.3 mg/dL (0.2-1); TOT PROT 8.3 g/dl (6.4-8.2)
[2024-03-25] MEDS: MEROPENEM-0.9% SODIUM CHLORIDE 1 GM/50 ML BAG IVPB SCH (07:19)
[2024-03-25 07:48] LABS: BASO % 0.5 % (0-2.0); HEMATOCRIT 47.2 % (35.4-49); HEMOGLOBIN 15.3 GM/dL (11.7-16.9); LYMPH % 21.6 % (8-40); MCH 34.6 pg (25.7-33.7); MCHC 32.5 g/dl (32.0-35.9); MEAN CELL VOLUME 106.7 fl (80-96); MEAN PLT VOLUME 8.7 fl (7.5-11.1); MONO % 7.6 % (3.8-10.2); NEUT % 70.3 % (42.8-82.8); PLATELET COUNT 248 10^3/uL (134-434); RBC 4.42 M/mm3 (4.00-5.60); RDW 13.9 % (11.9-15.9); WHITE BLOOD COUNT 9.9 K/mm3 (4.0-10.0)
[2024-03-25 07:55] LABS: POTASSIUM 3.8 mmol/L (3.5-5.1)
[2024-03-25 07:58] LABS: CALCIUM 9.9 mg/dL (8.5-10.1)
[2024-03-25 07:59] LABS: ALBUMIN 3.8 g/dl (3.4-5.0); BLOOD UREA NITROGEN 28.8 mg/dL (7-18); MAGNESIUM 2.7 mg/dL (1.8-2.4)
[2024-03-25 08:02] LABS: CREATININE 1.3 mg/dL (0.55-1.3)
[2024-03-25 08:03] LABS: BILIRUBIN,TOTAL 0.2 mg/dL (0.2-1); TOT PROT 8.1 g/dl (6.4-8.2)
[2024-03-25] MEDS: ERYTHROMYCIN 0.5% OPHTHALMIC OINTMENT 3.5 GM TUBE OD SCH (10:26)
[2024-03-25] MEDS: IBUPROFEN 100 MG/5 ML UNIT DOSE CUPS GT PRN (10:39)
[2024-03-25] MEDS: LACTATED RINGERS SOLUTION 1,000 ML/1,000 ML INFUS.BAG IV SCH ×2 (10:51→17:46)
[2024-03-25] MEDS ORDERED: LACTATED RINGERS SOLUTION 1000 ML INFUS.BAG IV ONE (12:00)
[2024-03-25] MEDS: LACTATED RINGERS SOLUTION 500 ML IV SCH (13:13)
[2024-03-25 16:14] LABS: POTASSIUM 3.9 mmol/L (3.5-5.1)
[2024-03-25 16:22] LABS: BLOOD UREA NITROGEN 30.4 mg/dL (7-18); CALCIUM 9.5 mg/dL (8.5-10.1)
[2024-03-25 16:26] LABS: CREATININE 1.3 mg/dL (0.55-1.3)
[2024-03-25] MEDS: ACETAMINOPHEN 1000 MG/100 ML BAG IVPB PRN (17:25)
[2024-03-26] MEDS ORDERED: SODIUM CHLORIDE 0.9% 1000 ML INFUS.BAG IV SCH (07:00)
[2024-03-26 08:39] LABS: POTASSIUM 3.9 mmol/L (3.5-5.1)
[2024-03-26 08:46] LABS: BASO % 0.8 % (0-2.0); EOS % 0.1 % (0-4.5); HEMATOCRIT 38.6 % (35.4-49); HEMOGLOBIN 12.6 GM/dL (11.7-16.9); LYMPH % 18.7 % (8-40); MCHC 32.6 g/dl (32.0-35.9); MEAN CELL VOLUME 107.5 fl (80-96); MONO % 5.6 % (3.8-10.2); NEUT % 74.8 % (42.8-82.8); PLATELET COUNT 199 10^3/uL (134-434); RBC 3.59 M/mm3 (4.00-5.60); RDW 13.4 % (11.9-15.9); WHITE BLOOD COUNT 11.1 K/mm3 (4.0-10.0)
[2024-03-26 08:48] LABS: ALBUMIN 3.1 g/dl (3.4-5.0); CALCIUM 8.6 mg/dL (8.5-10.1); MAGNESIUM 2.4 mg/dL (1.8-2.4)
[2024-03-26 08:52] LABS: PHOSPHOROUS 2.1 mg/dL (2.5-4.9)
[2024-03-26 08:53] LABS: BILIRUBIN,TOTAL 0.3 mg/dL (0.2-1); TOT PROT 6.5 g/dl (6.4-8.2)
[2024-03-26] MEDS ORDERED: MEROPENEM-0.9% SODIUM CHLORIDE 1 GM/50 ML BAG IVPB SCH (10:00)
[2024-03-26] MEDS: MEROPENEM-0.9% SODIUM CHLORIDE 1 GM/50 ML BAG IVPB SCH (10:24)
[2024-03-26] MEDS: levETIRAcetam 500 MG/5 ML INJECTION VIAL IVPB SCH (10:24)
[2024-03-26] MEDS: DEXTROSE 5%-WATER - 1,000 ML IV SCH (10:24)
[2024-03-26] MEDS: POLYETHYLENE GLYCOL (HEALTHYLAX) 3350 17 GM PACKET PO SCH (13:26)
[2024-03-27 08:40] LABS: POTASSIUM 3.5 mmol/L (3.5-5.1)
[2024-03-27 08:48] LABS: CALCIUM 8.4 mg/dL (8.5-10.1)
[2024-03-27 08:49] LABS: BLOOD UREA NITROGEN 26.7 mg/dL (7-18)
[2024-03-27 08:52] LABS: CREATININE 0.9 mg/dL (0.55-1.3)
[2024-03-27] MEDS ORDERED: LORazepam 2 MG/ML SDV VIAL IVPUSH PRN (11:20)
[2024-03-27] MEDS: DEXTROSE 5%-WATER - 1,000 ML IV SCH (11:42)
[2024-03-27 14:08] LABS: EPI CELLS >36 /uL (0-25.1); HYALINE CASTS 0 /uL (0-3.1); URINE APPEARANCE CLEAR; URINE BACTERIA 95 /uL (0-1359); URINE BILIRUBIN NEGATIVE (NEGATIVE); URINE COLOR YELLOW; URINE GLUCOSE (UA) NEGATIVE (NEGATIVE); URINE KETONE TRACE (NEGATIVE); URINE LEUK ESTERASE 1+ (NEGATIVE); URINE NITRITE NEGATIVE (NEGATIVE); URINE PROTEIN 1+ (NEGATIVE); URINE RBC 15 /uL (0-23.9); URINE UROBILINOGEN 0.2 mg/dL (0.2-1.0); URINE WBC 129 /uL (0-25.8)
[2024-03-27 16:08] LABS: POTASSIUM 3.5 mmol/L (3.5-5.1)
[2024-03-27 16:09] LABS: CALCIUM 8.4 mg/dL (8.5-10.1)
[2024-03-27 16:10] LABS: BLOOD UREA NITROGEN 24.4 mg/dL (7-18)
[2024-03-27 16:13] LABS: CREATININE 0.9 mg/dL (0.55-1.3)
[2024-03-27] MEDS: LACTATED RINGERS SOLUTION 1,000 ML/1,000 ML INFUS.BAG IV STA ×2 (16:20→16:26)
[2024-03-27 17:01] LABS: HEMATOCRIT 31.6 % (35.4-49); HEMOGLOBIN 10.5 GM/dL (11.7-16.9); MCH 35.4 pg (25.7-33.7); MCHC 33.3 g/dl (32.0-35.9); MEAN CELL VOLUME 106.4 fl (80-96); MEAN PLT VOLUME 8.7 fl (7.5-11.1); PLATELET COUNT 138 10^3/uL (134-434); RBC 2.97 M/mm3 (4.00-5.60); RDW 13.4 % (11.9-15.9); WHITE BLOOD COUNT 7.9 K/mm3 (4.0-10.0)
[2024-03-27 17:13] LABS: POTASSIUM 3.5 mmol/L (3.5-5.1)
[2024-03-27 17:15] LABS: CALCIUM 8.1 mg/dL (8.5-10.1)
[2024-03-27 17:16] LABS: BLOOD UREA NITROGEN 23.6 mg/dL (7-18)
[2024-03-27 17:19] LABS: CREATININE 0.9 mg/dL (0.55-1.3)
[2024-03-27 17:21] LABS: BILIRUBIN,TOTAL 0.3 mg/dL (0.2-1); TOT PROT 5.3 g/dl (6.4-8.2)
[2024-03-27 17:59] LABS: ALBUMIN 2.3 g/dl (3.4-5.0)
[2024-03-27] MEDS: CEFTRIAXONE 1,000 MG in DEXTROSE 5%-WATER - 50 ML IVPB ONE (18:26)
[2024-03-27] MEDS: DEXTROSE 5%-LACTATED RINGERS 1,000 ML IV SCH ×2 (18:27→19:30)
[2024-03-27] MEDS: levETIRAcetam 500 MG/5 ML ORAL SOLUTION (UNIT-DOSE CUPS) PO SCH (21:35)
[2024-03-28 07:39] LABS: POTASSIUM 3.8 mmol/L (3.5-5.1)
[2024-03-28 07:40] LABS: CALCIUM 8.2 mg/dL (8.5-10.1)
[2024-03-28 07:41] LABS: BLOOD UREA NITROGEN 15.8 mg/dL (7-18)
[2024-03-28 07:44] LABS: CREATININE 0.7 mg/dL (0.55-1.3)
[2024-03-28 08:48] LABS: HEMATOCRIT 34.4 % (35.4-49); HEMOGLOBIN 11.6 GM/dL (11.7-16.9); MCH 36.2 pg (25.7-33.7); MCHC 33.8 g/dl (32.0-35.9); PLATELET COUNT 143 10^3/uL (134-434); RBC 3.22 M/mm3 (4.00-5.60); WHITE BLOOD COUNT 5.9 K/mm3 (4.0-10.0)
[2024-03-28] MEDS ORDERED: SODIUM CHLORIDE 1,000 ML IV SCH (11:30)
[2024-03-28] MEDS: SODIUM CHLORIDE 0.45% 1,000 ML IV SCH (12:27)
[2024-03-28 13:04] LABS: EPI CELLS 14 /uL (0-25.1); HYALINE CASTS 1 /uL (0-3.1); PH,URINE 8.5 (5.0-8.0); URINE APPEARANCE CLEAR; URINE BACTERIA 57 /uL (0-1359); URINE BILIRUBIN NEGATIVE (NEGATIVE); URINE COLOR YELLOW; URINE GLUCOSE (UA) NEGATIVE (NEGATIVE); URINE KETONE NEGATIVE (NEGATIVE); URINE LEUK ESTERASE NEGATIVE (NEGATIVE); URINE NITRITE NEGATIVE (NEGATIVE); URINE PROTEIN 1+ (NEGATIVE); URINE RBC 31 /uL (0-23.9); URINE UROBILINOGEN 0.2 mg/dL (0.2-1.0); URINE WBC 39 /uL (0-25.8)
[2024-03-28] MEDS: SODIUM CHLORIDE 1,000 ML IV STA (15:56)
[2024-03-29 08:21] LABS: EOS % 3.4 % (0-4.5); HEMATOCRIT 31.3 % (35.4-49); HEMOGLOBIN 10.5 GM/dL (11.7-16.9); LYMPH % 13.5 % (8-40); MCH 35.7 pg (25.7-33.7); MCHC 33.4 g/dl (32.0-35.9); MEAN CELL VOLUME 106.7 fl (80-96); MEAN PLT VOLUME 9.4 fl (7.5-11.1); MONO % 7.6 % (3.8-10.2); NEUT % 74.5 % (42.8-82.8); PLATELET COUNT 171 10^3/uL (134-434); RBC 2.94 M/mm3 (4.00-5.60); RDW 12.8 % (11.9-15.9); WHITE BLOOD COUNT 7.3 K/mm3 (4.0-10.0)
[2024-03-29 08:39] LABS: POTASSIUM 3.6 mmol/L (3.5-5.1)
[2024-03-29 08:43] LABS: CALCIUM 8.4 mg/dL (8.5-10.1)
[2024-03-29 08:44] LABS: ALBUMIN 2.3 g/dl (3.4-5.0); BLOOD UREA NITROGEN 12.9 mg/dL (7-18); MAGNESIUM 2.3 mg/dL (1.8-2.4)
[2024-03-29 08:47] LABS: CREATININE 0.7 mg/dL (0.55-1.3)
[2024-03-29 08:49] LABS: BILIRUBIN,TOTAL 0.3 mg/dL (0.2-1); TOT PROT 5.5 g/dl (6.4-8.2)
[2024-03-29 10:29] LABS: ANISOCYTOSIS 0; MACROCYTOSIS 2+
[2024-03-29] MEDS: LEVALBUTEROL HCL 0.31 MG/3 ML VIAL.NEB IH SCH (20:36)
[2024-03-30 08:44] LABS: BASO % 0.6 % (0-2.0); EOS % 3.5 % (0-4.5); HEMATOCRIT 29.6 % (35.4-49); HEMOGLOBIN 10.2 GM/dL (11.7-16.9); LYMPH % 23.5 % (8-40); MCH 35.8 pg (25.7-33.7); MCHC 34.4 g/dl (32.0-35.9); MEAN CELL VOLUME 103.9 fl (80-96); MEAN PLT VOLUME 9.2 fl (7.5-11.1); MONO % 9.9 % (3.8-10.2); NEUT % 62.5 % (42.8-82.8); PLATELET COUNT 191 10^3/uL (134-434); RBC 2.85 M/mm3 (4.00-5.60); RDW 12.9 % (11.9-15.9); WHITE BLOOD COUNT 5.3 K/mm3 (4.0-10.0)
[2024-03-30 08:55] LABS: POTASSIUM 3.4 mmol/L (3.5-5.1)
[2024-03-30 09:02] LABS: ALBUMIN 2.3 g/dl (3.4-5.0)
[2024-03-30 09:03] LABS: BLOOD UREA NITROGEN 12.1 mg/dL (7-18); CALCIUM 8.5 mg/dL (8.5-10.1)
[2024-03-30 09:04] LABS: MAGNESIUM 2.3 mg/dL (1.8-2.4)
[2024-03-30 09:06] LABS: CREATININE 0.7 mg/dL (0.55-1.3)
[2024-03-30 09:07] LABS: BILIRUBIN,TOTAL 0.4 mg/dL (0.2-1); TOT PROT 5.4 g/dl (6.4-8.2)
[2024-03-30] MEDS: POTASSIUM CHLORIDE ORAL LIQUID 20 MEQ/15 ML GT ONE (14:28)
[2024-03-31 08:37] LABS: BASO % 0.7 % (0-2.0); HEMATOCRIT 30.8 % (35.4-49); HEMOGLOBIN 10.4 GM/dL (11.7-16.9); LYMPH % 28.7 % (8-40); MCH 35.3 pg (25.7-33.7); MCHC 33.8 g/dl (32.0-35.9); MEAN CELL VOLUME 104.4 fl (80-96); MEAN PLT VOLUME 9.2 fl (7.5-11.1); MONO % 8.9 % (3.8-10.2); NEUT % 56.7 % (42.8-82.8); PLATELET COUNT 233 10^3/uL (134-434); RBC 2.95 M/mm3 (4.00-5.60); RDW 13.1 % (11.9-15.9); WHITE BLOOD COUNT 5.7 K/mm3 (4.0-10.0)
[2024-03-31 08:45] LABS: POTASSIUM 4.2 mmol/L (3.5-5.1)
[2024-03-31 08:47] LABS: CALCIUM 8.9 mg/dL (8.5-10.1)
[2024-03-31 08:48] LABS: BLOOD UREA NITROGEN 12.3 mg/dL (7-18)
[2024-03-31 08:51] LABS: CREATININE 0.7 mg/dL (0.55-1.3)
[2024-03-31] MEDS ORDERED: MIDAZOLAM HCL 2 MG/2 ML SINGLE DOSE VIAL ONE (13:10)
[2024-03-31] MEDS: CLINDAMYCIN 600 MG PREMIX BAG IVPB ONE (13:10)
[2024-03-31] MEDS ORDERED: PROPOFOL 20 ML ONE ×2 (13:28→13:32)
[2024-03-31] MEDS: LIDOCAINE HCL 1%, 10 MG/ML (20ML VIAL) NR ONE (13:30)
[2024-03-31] MEDS ORDERED: ACETAMINOPHEN 1000 MG/100 ML BAG IVPB PRN (14:43)
[2024-03-31] MEDS ORDERED: IBUPROFEN 100 MG/5 ML UNIT DOSE CUPS GT PRN (14:43)
[2024-03-31] MEDS ORDERED: LORATADINE 10 MG TABLET GT PRN (14:43)
[2024-03-31] MEDS ORDERED: DIAZEPAM 10 MG NS PRN (14:43)
[2024-03-31] MEDS ORDERED: ONDANSETRON 4 MG/2 ML VIAL IVPUSH PRN (14:46)
[2024-03-31] MEDS: SODIUM CHLORIDE 0.9% 1000 ML INFUS.BAG IV ONE (16:40)
[2024-03-31] MEDS: SODIUM CHLORIDE 0.45% 1,000 ML IV SCH (19:18)
[2024-03-31] MEDS: LEVALBUTEROL HCL 0.31 MG/3 ML VIAL.NEB IH SCH (20:05)
[2024-03-31] MEDS: BACLOFEN 10 MG TABLET (FP) GT SCH (21:22)
[2024-03-31] MEDS: levETIRAcetam 500 MG/5 ML ORAL SOLUTION (UNIT-DOSE CUPS) GT SCH (21:23)
[2024-03-31] MEDS: SENNOSIDES 8.8 MG/5 ML SYRUP GT SCH (21:23)
[2024-03-31] MEDS: lamoTRIgine 100 MG TABLET GT SCH (21:23)
[2024-03-31] MEDS: TIZANIDINE HCL 8 MG GT SCH (21:24)
[2024-03-31] MEDS: ERYTHROMYCIN 0.5% OPHTHALMIC OINTMENT 3.5 GM TUBE OD SCH (23:18)
[2024-04-01 09:31] LABS: BASO % 0.7 % (0-2.0); EOS % 3.9 % (0-4.5); HEMATOCRIT 33.4 % (35.4-49); HEMOGLOBIN 11.4 GM/dL (11.7-16.9); LYMPH % 25.1 % (8-40); MCH 35.3 pg (25.7-33.7); MCHC 34.1 g/dl (32.0-35.9); MEAN CELL VOLUME 103.3 fl (80-96); MEAN PLT VOLUME 8.8 fl (7.5-11.1); NEUT % 61.3 % (42.8-82.8); PLATELET COUNT 334 10^3/uL (134-434); RBC 3.24 M/mm3 (4.00-5.60); RDW 12.6 % (11.9-15.9); WHITE BLOOD COUNT 5.9 K/mm3 (4.0-10.0)
[2024-04-01 10:05] LABS: POTASSIUM 3.9 mmol/L (3.5-5.1)
[2024-04-01 10:09] LABS: CALCIUM 9.1 mg/dL (8.5-10.1)
[2024-04-01 10:10] LABS: BLOOD UREA NITROGEN 14.4 mg/dL (7-18); MAGNESIUM 1.9 mg/dL (1.8-2.4)
[2024-04-01 10:12] LABS: BILIRUBIN,TOTAL 0.5 mg/dL (0.2-1)
[2024-04-01 10:13] LABS: CREATININE 0.7 mg/dL (0.55-1.3)
[2024-04-01 10:15] LABS: TOT PROT 6.6 g/dl (6.4-8.2)
[2024-04-01 10:17] LABS: ALBUMIN 2.8 g/dl (3.4-5.0)
[2024-04-01] MEDS: POLYETHYLENE GLYCOL (HEALTHYLAX) 3350 17 GM PACKET GT SCH (11:01)
[2024-04-01] MEDS: CHOLECALCIFEROL (VIT D3) 1,000 UNIT (25 MCG) TABLET GT SCH (11:01)
[2024-04-01] MEDS: LACTOBACILLUS ACIDOPHILUS 1 TABLET GT SCH (11:01)
[2024-04-01] MEDS: OXcarbazepine 300 MG/5 ML UNIT DOSE CUPS GT SCH (11:02)
[2024-04-01] MEDS: lamoTRIgine 100 MG TABLET GT SCH (11:02)
[2024-04-02 06:49] VITALS: RESP 18
[2024-04-02 10:34] LABS: BASO % 0.8 % (0-2.0); EOS % 3.7 % (0-4.5); HEMATOCRIT 33.4 % (35.4-49); HEMOGLOBIN 11.3 GM/dL (11.7-16.9); LYMPH % 32.5 % (8-40); MCH 35.2 pg (25.7-33.7); MEAN CELL VOLUME 103.7 fl (80-96); MEAN PLT VOLUME 8.8 fl (7.5-11.1); MONO % 10.6 % (3.8-10.2); NEUT % 52.4 % (42.8-82.8); PLATELET COUNT 397 10^3/uL (134-434); RBC 3.22 M/mm3 (4.00-5.60); RDW 12.9 % (11.9-15.9); WHITE BLOOD COUNT 4.5 K/mm3 (4.0-10.0)
[2024-04-02] MEDS ORDERED: levETIRAcetam 500 MG/5 ML INJECTION VIAL IVPB ONE (10:38)
[2024-04-02 11:15] LABS: POTASSIUM 4.4 mmol/L (3.5-5.1)
[2024-04-02 11:19] LABS: CALCIUM 9.7 mg/dL (8.5-10.1)
[2024-04-02 11:20] LABS: ALBUMIN 2.8 g/dl (3.4-5.0); BLOOD UREA NITROGEN 14.6 mg/dL (7-18); MAGNESIUM 2.3 mg/dL (1.8-2.4)
[2024-04-02 11:23] LABS: CREATININE 0.9 mg/dL (0.55-1.3)
[2024-04-02 11:24] LABS: BILIRUBIN,TOTAL 0.6 mg/dL (0.2-1); TOT PROT 6.9 g/dl (6.4-8.2)
[2024-04-02 13:38] VITALS: BP 95/58; PULSE 82; TEMP 97.5
== END 2024-04-02 15:27 | disposition home or self-care (01) | DRG 662 ==
LOC: JER 10:22 → JERBED 15:20 → OBSVTOIN 15:25 → J7W 03-22 01:23
PROVIDERS: ADMIT Internal Medicine
PROC: 0T9B00Z Drainage of Bladder with Drainage Device, Open Approach (ICD-10-PCS; principal; 2024-03-31 13:00)
DX: T83.020A Displacement of cystostomy catheter, initial encounter (principal); A41.02 Sepsis due to Methicillin resistant Staphylococcus aureus; R53.2 Functional quadriplegia; N39.0 Urinary tract infection, site not specified; E87.0 Hyperosmolality and hypernatremia; R64 Cachexia; Z68.1 Body mass index [BMI] 19.9 or less, adult; Q90.9 Down syndrome, unspecified; G80.9 Cerebral palsy, unspecified; Y83.9 Surgical procedure, unspecified as the cause of abnormal reaction of the patient, or of later complication, without mention of misadventure at the time of the procedure; N31.9 Neuromuscular dysfunction of bladder, unspecified; R56.9 Unspecified convulsions; K21.9 Gastro-esophageal reflux disease without esophagitis; E03.9 Hypothyroidism, unspecified; E86.0 Dehydration; K59.00 Constipation, unspecified
CPT/HCPCS: 36415; 71045-TC-FY; 74176-TC; 80048; 80053; 80177; 81003; 82962; 83605; 83735; 83935; 84100; 85025; 85027; 85610; 87040; 87070; 87086; 87186; 87205; 87635; 94760; 97162-GP; 99285-25; G0378; J0131; J0475; J1644

== ENCOUNTER 2024-04-03 15:09 | Inpatient (IN) | payer OTHER ==
[2024-04-03 16:43] LABS: BASO % 0.8 % (0-2.0); EOS % 2.2 % (0-4.5); HEMATOCRIT 29.6 % (35.4-49); HEMOGLOBIN 9.9 GM/dL (11.7-16.9); MCH 35.3 pg (25.7-33.7); MCHC 33.6 g/dl (32.0-35.9); MEAN PLT VOLUME 7.8 fl (7.5-11.1); MONO % 9.4 % (3.8-10.2); NEUT % 64.6 % (42.8-82.8); PLATELET COUNT 390 10^3/uL (134-434); RBC 2.82 M/mm3 (4.00-5.60); RDW 13.2 % (11.9-15.9); WHITE BLOOD COUNT 6.6 K/mm3 (4.0-10.0)
[2024-04-03 16:50] LABS: INR 1.05 (0.83-1.09); PROTHROMBIN TIME (PATIENT) 11.8 SEC (9.7-13.0)
[2024-04-03 17:01] LABS: VENOUS BASE EXCESS -3.4 mmol/L (-2-2); VENOUS O2 SATURATION 75.5 % (70-80); VENOUS PCO2 48.9 mmHg (38-52); VENOUS PH 7.295 (7.310-7.410)
[2024-04-03 17:08] LABS: ALBUMIN 2.5 g/dl (3.4-5.0); CALCIUM 8.7 mg/dL (8.5-10.1)
[2024-04-03 17:08] LABS: URINE APPEARANCE CLEAR; URINE BILIRUBIN NEGATIVE (NEGATIVE); URINE COLOR YELLOW; URINE GLUCOSE (UA) NEGATIVE (NEGATIVE); URINE KETONE NEGATIVE (NEGATIVE); URINE LEUK ESTERASE 3+ (NEGATIVE); URINE NITRITE NEGATIVE (NEGATIVE); URINE PROTEIN NEGATIVE (NEGATIVE); URINE UROBILINOGEN 0.2 mg/dL (0.2-1.0)
[2024-04-03 17:11] LABS: CREATININE 0.9 mg/dL (0.55-1.3)
[2024-04-03 17:11] LABS: EPI CELLS 35.7 /uL (0-25.1); URINE RBC 4.2 /uL (0-23.9); URINE WBC 152.1 /uL (0-25.8)
[2024-04-03 17:12] LABS: HYALINE CASTS 0.68 /uL (0-3.1); URINE BACTERIA 94.4 /uL (0-1359)
[2024-04-03 17:13] LABS: BILIRUBIN,TOTAL 0.2 mg/dL (0.2-1); TOT PROT 5.8 g/dl (6.4-8.2)
[2024-04-03 17:23] LABS: ANISOCYTOSIS 1+; MACROCYTOSIS 1+
[2024-04-03] MEDS ORDERED: MEROPENEM 1 GM VIAL (RESTRICTED TO ID) IVPB ONE (18:04)
[2024-04-03] MEDS: MEROPENEM 1 GM in DEXTROSE 5%-WATER 100 ML IVPB ONE (18:20)
[2024-04-03 22:09] LABS: RETICULOCYTES 1.44 % (0.5-1.5)
[2024-04-03] MEDS ORDERED: ALBUTEROL SO4 0.083% IH SOL 2.5 MG/3 ML VIAL.NEB. NEB PRN (23:17)
[2024-04-03] MEDS: BACLOFEN 10 MG TABLET (FP) GT SCH (23:39)
[2024-04-03] MEDS: levETIRAcetam 500 MG/5 ML ORAL SOLUTION (UNIT-DOSE CUPS) GT SCH (23:39)
[2024-04-03] MEDS: VANCOMYCIN/WATER FOR INJ (PEG) 750 MG/150 ML BAG IVPB SCH (23:39)
[2024-04-04] MEDS: PATIENT'S OWN MEDICATION (NON-FORMULARY) (Tizanidine Hcl [Tizanidine Hcl] 4 MG Tablet) GT SCH ×2 (00:03→20:22)
[2024-04-04] MEDS: lamoTRIgine 100 MG TABLET GT SCH ×2 (07:11→22:50)
[2024-04-04] MEDS: MEROPENEM-0.9% SODIUM CHLORIDE 1 GM/50 ML BAG IVPB SCH (08:58)
[2024-04-04] MEDS: ENOXAPARIN NA (PORCINE) 40 MG/0.4 ML DISP.SYRIN SQ SCH (09:01)
[2024-04-04] MEDS: OXcarbazepine 300 MG/5 ML UNIT DOSE CUPS GT SCH (09:27)
[2024-04-04 10:36] LABS: HEMATOCRIT 34.5 % (35.4-49); HEMOGLOBIN 11.8 GM/dL (11.7-16.9); MCH 35.9 pg (25.7-33.7); MCHC 34.1 g/dl (32.0-35.9); MEAN CELL VOLUME 105.2 fl (80-96); MEAN PLT VOLUME 8.4 fl (7.5-11.1); PLATELET COUNT 479 10^3/uL (134-434); RBC 3.28 M/mm3 (4.00-5.60); RDW 13.3 % (11.9-15.9); WHITE BLOOD COUNT 7.9 K/mm3 (4.0-10.0)
[2024-04-04 10:57] LABS: POTASSIUM 4.6 mmol/L (3.5-5.1)
[2024-04-04 11:11] LABS: BLOOD UREA NITROGEN 10.9 mg/dL (7-18); CALCIUM 9.9 mg/dL (8.5-10.1)
[2024-04-04 11:12] LABS: MAGNESIUM 2.1 mg/dL (1.8-2.4)
[2024-04-04 11:15] LABS: PHOSPHOROUS 2.7 mg/dL (2.5-4.9)
[2024-04-04 11:16] LABS: BILIRUBIN,TOTAL 0.4 mg/dL (0.2-1); TOT PROT 7.1 g/dl (6.4-8.2)
[2024-04-04] MEDS: OXcarbazepine 300 MG/5 ML 250 ML BULK BOTTLE GT SCH (11:22)
[2024-04-04] MEDS ORDERED: VANCOMYCIN/WATER FOR INJ (PEG) 750 MG/150 ML BAG IVPB SCH (12:15)
[2024-04-04] MEDS: SODIUM CHLORIDE 1,000 ML IV SCH (13:37)
[2024-04-04] MEDS: VANCOMYCIN 750 MG in DEXTROSE 5%-WATER - 150 ML IVPB SCH (16:40)
[2024-04-04] MEDS ORDERED: PATIENT'S OWN MEDICATION (NON-FORMULARY) (Nitrofurantoin Macrocrystal [Nitrofurantoin] 100 GT SCH (22:00)
[2024-04-05] MEDS: MEROPENEM-0.9% SODIUM CHLORIDE 1 GM/50 ML BAG IVPB SCH (05:15)
[2024-04-05 09:41] LABS: BASO % 0.7 % (0-2.0); EOS % 0.2 % (0-4.5); HEMATOCRIT 30.8 % (35.4-49); HEMOGLOBIN 10.2 GM/dL (11.7-16.9); LYMPH % 18.8 % (8-40); MCH 35.1 pg (25.7-33.7); MEAN CELL VOLUME 106.2 fl (80-96); MEAN PLT VOLUME 8.6 fl (7.5-11.1); MONO % 8.2 % (3.8-10.2); NEUT % 72.1 % (42.8-82.8); PLATELET COUNT 519 10^3/uL (134-434); RDW 13.6 % (11.9-15.9); WHITE BLOOD COUNT 10.1 K/mm3 (4.0-10.0)
[2024-04-05 10:10] LABS: POTASSIUM 4.4 mmol/L (3.5-5.1)
[2024-04-05 10:18] LABS: CALCIUM 9.1 mg/dL (8.5-10.1)
[2024-04-05 10:19] LABS: BLOOD UREA NITROGEN 15.2 mg/dL (7-18)
[2024-04-05] MEDS: LACTATED RINGERS SOLUTION 1,000 ML/1,000 ML INFUS.BAG IV SCH (10:51)
[2024-04-05] MEDS: methylPREDNISolone NA SUCC 40 MG/1 ML VIAL IVPUSH SCH ×2 (11:34→23:28)
[2024-04-05 11:41] LABS: ARTERIAL BLD GAS O2 SATURATION 93.8 % (95-98); ARTERIAL BLOOD GAS BASE EXCESS -0.8 mmol/L (-2-2); ARTERIAL BLOOD GAS PO2 73.4 mmHg (80-100); ARTERIAL BLOOD GAS pH 7.341 (7.350-7.450)
[2024-04-05] MEDS: SODIUM CHLORIDE 0.9% 250 ML INFUS.BAG IV ONE (11:41)
[2024-04-05 11:42] LABS: ALLENS TEST POSITIVE
[2024-04-05] MEDS: SODIUM CHLORIDE 250 ML IV STA (12:12)
[2024-04-05 12:20] VITALS: BMI 17.9
[2024-04-05] MEDS: SODIUM CHLORIDE 250 ML IV ONE (14:52)
[2024-04-05] MEDS: VANCOMYCIN/WATER FOR INJ (PEG) 1,000 MG/200 ML BAG IVPB SCH (15:44)
[2024-04-05] MEDS: POLYETHYLENE GLYCOL (HEALTHYLAX) 3350 17 GM PACKET GT SCH (18:33)
[2024-04-05] MEDS: ALBUTEROL SO4 2.5/IPRATROPIUM 0.5 INH SOL 3 ML VIAL.NEB. NEB SCH (20:05)
[2024-04-06] MEDS: ACETAMINOPHEN 1000 MG/100 ML BAG IVPB PRN (00:33)
[2024-04-06] MEDS ORDERED: ACETAMINOPHEN 1000 MG/100 ML BAG IVPB PRN (06:13)
[2024-04-06] MEDS: LACTATED RINGERS SOLUTION 1,000 ML/1,000 ML INFUS.BAG IV SCH (09:35)
[2024-04-06 09:38] LABS: BASO % 0.2 % (0-2.0); HEMATOCRIT 31.1 % (35.4-49); HEMOGLOBIN 10.7 GM/dL (11.7-16.9); LYMPH % 8.9 % (8-40); MCH 35.7 pg (25.7-33.7); MCHC 34.4 g/dl (32.0-35.9); MEAN CELL VOLUME 103.7 fl (80-96); MEAN PLT VOLUME 8.2 fl (7.5-11.1); MONO % 0.7 % (3.8-10.2); NEUT % 90.2 % (42.8-82.8); PLATELET COUNT 503 10^3/uL (134-434); RDW 13.3 % (11.9-15.9); WHITE BLOOD COUNT 8.9 K/mm3 (4.0-10.0)
[2024-04-06 10:03] LABS: POTASSIUM 4.2 mmol/L (3.5-5.1)
[2024-04-06 10:07] LABS: ALBUMIN 2.8 g/dl (3.4-5.0); BLOOD UREA NITROGEN 17.2 mg/dL (7-18); CALCIUM 9.1 mg/dL (8.5-10.1)
[2024-04-06 10:11] LABS: CREATININE 0.9 mg/dL (0.55-1.3)
[2024-04-06 10:12] LABS: BILIRUBIN,TOTAL 0.3 mg/dL (0.2-1)
[2024-04-06 10:13] LABS: TOT PROT 7.1 g/dl (6.4-8.2)
[2024-04-06] MEDS: levETIRAcetam 500 MG/5 ML ORAL SOLUTION (UNIT-DOSE CUPS) GT SCH (10:52)
[2024-04-06] MEDS: ENOXAPARIN NA (PORCINE) 40 MG/0.4 ML DISP.SYRIN SQ SCH (10:53)
[2024-04-06] MEDS: POLYETHYLENE GLYCOL (HEALTHYLAX) 3350 17 GM PACKET PEG SCH (10:53)
[2024-04-06] MEDS ORDERED: LEVALBUTEROL HCL 0.63 MG/3 ML VIAL.NEB. IH PRN (13:03)
[2024-04-06] MEDS: BISACODYL 10 MG SUPP.RECT PR PRN (13:09)
[2024-04-06] MEDS: methylPREDNISolone NA SUCC 40 MG/1 ML VIAL IVPUSH SCH ×2 (13:52→22:32)
[2024-04-06] MEDS: BACLOFEN 10 MG TABLET (FP) GT SCH (14:58)
[2024-04-06] MEDS ORDERED: VANCOMYCIN/WATER FOR INJ (PEG) 1,000 MG/200 ML BAG IVPB SCH (15:00)
[2024-04-06 16:49] LABS: ARTERIAL BLD GAS O2 SATURATION 98.3 % (95-98); ARTERIAL BLOOD GAS BASE EXCESS 3.8 mmol/L (-2-2); ARTERIAL BLOOD GAS PO2 110.6 mmHg (80-100)
[2024-04-06 16:50] LABS: ALLENS TEST POSITIVE
[2024-04-06 16:51] LABS: PT'S TEMP 99
[2024-04-06] MEDS: lamoTRIgine 100 MG TABLET GT SCH (21:52)
[2024-04-06] MEDS ORDERED: MEROPENEM-0.9% SODIUM CHLORIDE 1 GM/50 ML BAG IVPB SCH (22:00)
[2024-04-07] MEDS: lamoTRIgine 100 MG TABLET GT SCH (07:03)
[2024-04-07] MEDS: OXcarbazepine 300 MG/5 ML UNIT DOSE CUPS GT SCH (07:04)
[2024-04-07 09:00] LABS: HEMATOCRIT 33.7 % (35.4-49); HEMOGLOBIN 11.6 GM/dL (11.7-16.9); MCH 35.3 pg (25.7-33.7); MCHC 34.4 g/dl (32.0-35.9); MEAN CELL VOLUME 102.7 fl (80-96); MEAN PLT VOLUME 8.4 fl (7.5-11.1); PLATELET COUNT 518 10^3/uL (134-434); RBC 3.28 M/mm3 (4.00-5.60); RDW 13.1 % (11.9-15.9); WHITE BLOOD COUNT 13.3 K/mm3 (4.0-10.0)
[2024-04-07 09:17] LABS: POTASSIUM 3.7 mmol/L (3.5-5.1)
[2024-04-07 09:20] LABS: CALCIUM 9.3 mg/dL (8.5-10.1)
[2024-04-07 09:21] LABS: BLOOD UREA NITROGEN 16.6 mg/dL (7-18); MAGNESIUM 2.1 mg/dL (1.8-2.4)
[2024-04-07 09:24] LABS: CREATININE 0.8 mg/dL (0.55-1.3)
[2024-04-07 09:26] LABS: BILIRUBIN,TOTAL 0.3 mg/dL (0.2-1); TOT PROT 7.4 g/dl (6.4-8.2)
[2024-04-07 09:53] LABS: ANISOCYTOSIS 1+; MACROCYTOSIS 0
[2024-04-07] MEDS: DEXTROSE 5%-NORMAL SALINE 1,000 ML IV SCH ×2 (11:15→15:01)
[2024-04-07] MEDS: ACETAMINOPHEN 1000 MG/100 ML BAG IVPB ONE (11:17)
[2024-04-07] MEDS ORDERED: LEVALBUTEROL HCL 0.63 MG/3 ML VIAL.NEB. IH PRN (14:14)
[2024-04-07] MEDS ORDERED: ACETAMINOPHEN 1000 MG/100 ML BAG IVPB PRN (14:38)
[2024-04-07] MEDS: BACLOFEN 10 MG TABLET (FP) GT SCH (15:02)
[2024-04-07 15:29] LABS: PHOSPHOROUS 1.8 mg/dL (2.5-4.9)
[2024-04-07] MEDS: BISACODYL 10 MG SUPP.RECT PR PRN (18:52)
[2024-04-07] MEDS ORDERED: BACLOFEN 10 MG TABLET (FP) GT SCH (22:00)
[2024-04-07] MEDS: levETIRAcetam 500 MG/5 ML ORAL SOLUTION (UNIT-DOSE CUPS) GT SCH (23:36)
[2024-04-07] MEDS: POLYETHYLENE GLYCOL (HEALTHYLAX) 3350 17 GM PACKET PEG SCH (23:36)
[2024-04-08] MEDS: methylPREDNISolone NA SUCC 40 MG/1 ML VIAL IVPUSH SCH (00:19)
[2024-04-08] MEDS: lamoTRIgine 100 MG TABLET GT SCH ×2 (00:19→06:28)
[2024-04-08] MEDS: SODIUM CHLORIDE 500 ML IV STA (00:20)
[2024-04-08] MEDS: DEXTROSE 5%-NORMAL SALINE 1,000 ML IV SCH (00:20)
[2024-04-08] MEDS: ACETAMINOPHEN 1000 MG/100 ML BAG IVPB ONE (06:23)
[2024-04-08] MEDS: OXcarbazepine 300 MG/5 ML UNIT DOSE CUPS GT SCH (06:43)
[2024-04-08 06:52] LABS: HEMATOCRIT 32.9 % (35.4-49); HEMOGLOBIN 10.9 GM/dL (11.7-16.9); MCH 34.8 pg (25.7-33.7); MCHC 33.1 g/dl (32.0-35.9); MEAN CELL VOLUME 105.1 fl (80-96); MEAN PLT VOLUME 8.3 fl (7.5-11.1); PLATELET COUNT 435 10^3/uL (134-434); RBC 3.13 M/mm3 (4.00-5.60); RDW 13.2 % (11.9-15.9); WHITE BLOOD COUNT 8.6 K/mm3 (4.0-10.0)
[2024-04-08 07:10] LABS: POTASSIUM 3.4 mmol/L (3.5-5.1)
[2024-04-08 07:17] LABS: ALBUMIN 2.6 g/dl (3.4-5.0)
[2024-04-08 07:18] LABS: BLOOD UREA NITROGEN 14.7 mg/dL (7-18)
[2024-04-08 07:19] LABS: BILIRUBIN,TOTAL 0.2 mg/dL (0.2-1); TOT PROT 6.5 g/dl (6.4-8.2)
[2024-04-08 07:21] LABS: CREATININE 0.8 mg/dL (0.55-1.3)
[2024-04-08 07:22] LABS: CALCIUM 8.2 mg/dL (8.5-10.1); MAGNESIUM 2.3 mg/dL (1.8-2.4)
[2024-04-08] MEDS: POTASSIUM CHLORIDE ORAL LIQUID 20 MEQ/15 ML PO ONE (08:29)
[2024-04-08] MEDS: POTASSIUM CHLORIDE ORAL LIQUID 20 MEQ/15 ML GT ONE (08:32)
[2024-04-08 09:47] LABS: ANISOCYTOSIS 2+; MACROCYTOSIS 1+
[2024-04-08] MEDS: POLYETHYLENE GLYCOL (HEALTHYLAX) 3350 17 GM PACKET PEG SCH (10:15)
[2024-04-08] MEDS: ENOXAPARIN NA (PORCINE) 40 MG/0.4 ML DISP.SYRIN SQ SCH (10:15)
[2024-04-08] MEDS ORDERED: SODIUM CHLORIDE FOR INHALATION 3 ML VIAL.NEB IH PRN (14:27)
[2024-04-08] MEDS: NAPH,MB-DB/K PH,MBDB POWDER PACKET PO SCH (14:41)
[2024-04-08] MEDS: DEXTROSE 5%-WATER - 1,000 ML IV SCH (17:09)
[2024-04-09] MEDS: SODIUM CHLORIDE 500 ML IV STA (02:40)
[2024-04-09] MEDS: SODIUM CHLORIDE 1,000 ML IV STA (04:07)
[2024-04-09 08:25] LABS: BASO % 0.1 % (0-2.0); HEMATOCRIT 33.8 % (35.4-49); HEMOGLOBIN 11.2 GM/dL (11.7-16.9); LYMPH % 15.4 % (8-40); MCH 34.7 pg (25.7-33.7); MCHC 33.1 g/dl (32.0-35.9); MEAN CELL VOLUME 104.8 fl (80-96); MEAN PLT VOLUME 8.3 fl (7.5-11.1); MONO % 4.6 % (3.8-10.2); NEUT % 79.9 % (42.8-82.8); PLATELET COUNT 387 10^3/uL (134-434); RBC 3.23 M/mm3 (4.00-5.60); RDW 13.2 % (11.9-15.9)
[2024-04-09 08:29] LABS: POTASSIUM 3.8 mmol/L (3.5-5.1)
[2024-04-09 08:36] LABS: CALCIUM 7.7 mg/dL (8.5-10.1)
[2024-04-09 08:37] LABS: ALBUMIN 2.5 g/dl (3.4-5.0); MAGNESIUM 2.4 mg/dL (1.8-2.4)
[2024-04-09 08:40] LABS: CREATININE 0.7 mg/dL (0.55-1.3)
[2024-04-09 08:41] LABS: BILIRUBIN,TOTAL 0.2 mg/dL (0.2-1)
[2024-04-10 07:10] LABS: BASO % 0.1 % (0-2.0); HEMATOCRIT 35.4 % (35.4-49); HEMOGLOBIN 11.7 GM/dL (11.7-16.9); LYMPH % 15.4 % (8-40); MCH 34.9 pg (25.7-33.7); MEAN CELL VOLUME 105.7 fl (80-96); MEAN PLT VOLUME 8.2 fl (7.5-11.1); MONO % 4.8 % (3.8-10.2); NEUT % 79.7 % (42.8-82.8); PLATELET COUNT 383 10^3/uL (134-434); RBC 3.35 M/mm3 (4.00-5.60); WHITE BLOOD COUNT 6.2 K/mm3 (4.0-10.0)
[2024-04-10 07:49] LABS: POTASSIUM 3.9 mmol/L (3.5-5.1)
[2024-04-10 07:53] LABS: ALBUMIN 2.6 g/dl (3.4-5.0); CALCIUM 8.1 mg/dL (8.5-10.1)
[2024-04-10 07:54] LABS: BLOOD UREA NITROGEN 16.4 mg/dL (7-18); MAGNESIUM 2.6 mg/dL (1.8-2.4)
[2024-04-10 07:57] LABS: CREATININE 0.7 mg/dL (0.55-1.3)
[2024-04-10 07:58] LABS: BILIRUBIN,TOTAL 0.2 mg/dL (0.2-1); TOT PROT 6.2 g/dl (6.4-8.2)
[2024-04-10] MEDS: POLYETHYLENE GLYCOL (HEALTHYLAX) 3350 17 GM PACKET PEG SCH (21:53)
[2024-04-11 08:30] LABS: BASO % 0.2 % (0-2.0); EOS % 0.3 % (0-4.5); HEMATOCRIT 36.4 % (35.4-49); HEMOGLOBIN 12.4 GM/dL (11.7-16.9); LYMPH % 33.7 % (8-40); MCH 35.3 pg (25.7-33.7); MCHC 34.1 g/dl (32.0-35.9); MEAN CELL VOLUME 103.4 fl (80-96); MEAN PLT VOLUME 7.9 fl (7.5-11.1); MONO % 8.8 % (3.8-10.2); PLATELET COUNT 382 10^3/uL (134-434); RBC 3.52 M/mm3 (4.00-5.60); RDW 13.2 % (11.9-15.9); WHITE BLOOD COUNT 6.3 K/mm3 (4.0-10.0)
[2024-04-11 08:51] LABS: POTASSIUM 3.8 mmol/L (3.5-5.1)
[2024-04-11 08:59] LABS: ALBUMIN 2.7 g/dl (3.4-5.0); CALCIUM 8.2 mg/dL (8.5-10.1); MAGNESIUM 2.7 mg/dL (1.8-2.4)
[2024-04-11 09:02] LABS: CREATININE 0.7 mg/dL (0.55-1.3)
[2024-04-11 09:04] LABS: BILIRUBIN,TOTAL 0.3 mg/dL (0.2-1); TOT PROT 6.1 g/dl (6.4-8.2)
[2024-04-11] MEDS: FAMOTIDINE 20 MG/2.5 ML ORAL LIQUID PEG SCH (12:03)
[2024-04-11] MEDS: predniSONE 5 MG/5 ML ORAL SOLN- UNIT-DOSE CUP GT SCH (12:03)
[2024-04-11] MEDS: SODIUM CHLORIDE 1,000 ML IV SCH (15:15)
[2024-04-12] MEDS: levETIRAcetam 500 MG/5 ML INJECTION VIAL IVPB ONE (00:50)
[2024-04-12] MEDS: methylPREDNISolone NA SUCC 40 MG/1 ML VIAL IVPUSH ONE (00:50)
[2024-04-12] MEDS: TUBE FEED DECLOGGING SOLUTION 12,000 UNITS GT ONE (01:25)
[2024-04-12 07:03] LABS: HEMATOCRIT 36.2 % (35.4-49); HEMOGLOBIN 12.1 GM/dL (11.7-16.9); MCH 35.3 pg (25.7-33.7); MCHC 33.5 g/dl (32.0-35.9); MEAN CELL VOLUME 105.2 fl (80-96); MEAN PLT VOLUME 8.8 fl (7.5-11.1); PLATELET COUNT 344 10^3/uL (134-434); RBC 3.44 M/mm3 (4.00-5.60); RDW 13.3 % (11.9-15.9); WHITE BLOOD COUNT 9.3 K/mm3 (4.0-10.0)
[2024-04-12 07:18] LABS: POTASSIUM 4.6 mmol/L (3.5-5.1)
[2024-04-12 07:27] LABS: ALBUMIN 2.6 g/dl (3.4-5.0); BLOOD UREA NITROGEN 13.7 mg/dL (7-18); CALCIUM 8.2 mg/dL (8.5-10.1); MAGNESIUM 2.4 mg/dL (1.8-2.4)
[2024-04-12 07:30] LABS: CREATININE 0.7 mg/dL (0.55-1.3)
[2024-04-12 07:31] LABS: BILIRUBIN,TOTAL 0.2 mg/dL (0.2-1)
[2024-04-12 08:51] LABS: ANISOCYTOSIS 0; MACROCYTOSIS 1+
[2024-04-12] MEDS: predniSONE 20 MG TABLET (UD) GT SCH (09:35)
[2024-04-13 16:05] VITALS: BP 104/72; PULSE 89; RESP 14; TEMP 97.7
[2024-04-14] MEDS ORDERED: predniSONE 20 MG TABLET (UD) GT SCH (10:00)
== END 2024-04-13 13:10 | DRG 871 ==
LOC: JER 15:09 → JERBED 18:00 → J8W 21:08 → J4W 04-07 15:23
PROVIDERS: ADMIT Internal Medicine; ATTEND Nurse Practitioner Family
DX: A41.9 Sepsis, unspecified organism (principal); J18.9 Pneumonia, unspecified organism; R53.2 Functional quadriplegia; N39.0 Urinary tract infection, site not specified; J98.11 Atelectasis; R64 Cachexia; Z68.1 Body mass index [BMI] 19.9 or less, adult; E46 Unspecified protein-calorie malnutrition; G40.909 Epilepsy, unspecified, not intractable, without status epilepticus; E03.9 Hypothyroidism, unspecified; Z93.1 Gastrostomy status; R06.02 Shortness of breath; R62.50 Unspecified lack of expected normal physiological development in childhood; Q90.9 Down syndrome, unspecified; K56.41 Fecal impaction; E86.0 Dehydration; K21.9 Gastro-esophageal reflux disease without esophagitis
CPT/HCPCS: 0241U-QW; 36415; 36600; 71045-TC-FY; 71275-TC; 74018-TC-FY; 74176-TC; 80048; 80053; 81003; 82607; 82728; 82746; 82803; 82962; 83540; 83550; 83605; 83735; 84100; 84436; 84443; 84484; 85025; 85027; 85045; 85379; 85610; 85730; 86140; 86850; 86900; 86901; 87040; 87086; 87186; 93005; 93010; 93306-TC; 94640; 94761; 99285-25; J0131; J0475; Q9967